=== PATIENT | female | born 1985 | race African-American/Black ===

== ENCOUNTER 2017-03-05 09:34 | Emergency (ER) | payer BC ==
[2017-03-05] MEDS ORDERED: Albuterol/Ipratropium 3.0-0.5 MG/3 ML Neb Soln NEB ONE (09:49)
[2017-03-05] MEDS ORDERED: predniSONE 20 MG Tab PO ONE (09:51)
[2017-03-05] MEDS ORDERED: Albuterol 0.083% 2.5 MG/3 ML Neb Soln NEB ONE (10:29)
--- NOTE | 2017-03-05 11:07 | EDM.PDOC ---
ED HPI GENERAL MEDICAL PROBLEM - General Chief Complaint: Respiratory Problem Stated Complaint: COUGH AND CONGESTION Time Seen by Provider: 03/05/17 09:48 Source of Information: Reports: Patient History Limitations: Reports: No Limitations - History of Present Illness INITIAL COMMENTS - FREE TEXT/NARRATIVE: History of present illness: []Patient ran out of albuterol and Symbicort has been short of breath since last night. Patient states she just moved from [place]. She denies any fevers, chills, nausea or vomiting. Review of systems: As per history of present illness and below otherwise all systems reviewed and negative. Past medical history: As per history of present illness and as reviewed below otherwise noncontributory. Surgical history: As per history of present illness and as reviewed below otherwise noncontributory. Social history: No reported history of drug or alcohol abuse. Family history: As per history of present illness and as reviewed below otherwise noncontributory. Physical exam: General: Well developed, well nourished in no respiratory distress HEENT: Atraumatic, normocephalic, pupils reactive, negative for conjunctival pallor or scleral icterus, mucous membranes moist, throat clear, neck supple, nontender, trachea midline. Lungs: Wheezing, breath sounds equal bilaterally, no accessory muscle use, chest nontender. Heart: S1S2, regular, negative for clicks, rubs, or JVD. Abdomen: Soft, nondistended, nontender. Negative for masses or hepatosplenomegaly. Negative for costovertebral tenderness. Pelvis: Stable nontender. Genitourinary: Deferred. Rectal: Deferred. Extremities: Atraumatic, negative for cords or calf pain. Neurovascular unremarkable. Neuro: Awake, alert, oriented. Cranial nerves II through XII unremarkable. Cerebellum unremarkable. Motor and sensory unremarkable throughout. Exam nonfocal. Diagnostics: []Chest x-ray negative for pneumonia Therapeutics: []Albuterol, prednisone and DuoNeb given Impression: []Asthma exacerbation, med refill Plan: []Albuterol, prednisone, Symbicort as directed meds refilled Definitive disposition and diagnosis as appropriate pending reevaluation and review of above. - Related Data Allergies Allergy/AdvReac Type Severity Reaction Status Date / Time aspirin Allergy Anaphylactic Verified 03/05/17 09:51 Shock azithromycin [From Zithromax] Allergy Anaphylactic Verified 03/05/17 09:52 Shock montelukast [From Singulair] Allergy Anaphylactic Verified 03/05/17 09:51 Shock Penicillins Allergy Anaphylactic Verified 03/05/17 09:51 Shock Home Meds: Home Meds Albuterol Sulfate [Ventolin Hfa] 8 gm IH Q4HR PRN #1 hfa.[email or web address] 03/05/17 [Rx] Albuterol [Ventolin HFA] 2 puff INH Q6H 03/05/17 [History] Budesonide/Formoterol Fumarate [Symbicort 160-4.5 Mcg Inhaler] 1 puff IH ASDIRECTED 03/05/17 [History] Fluticasone Propionate [Flovent HFA 220 mcg] 2 puff IH ASDIRECTED PRN 03/05/17 [ History] predniSONE [Prednisone] 20 mg PO DAILY #5 tablet 03/05/17 [Rx] Past Medical History Respiratory History: Reports: Asthma 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: - Past Surgical History HEENT Surgical History: Reports: Naso-Sinus Surgery Social & Family History - Family History Family Medical History: Noncontributory - Tobacco Use Smoking Status *Q: Never Smoker - Recreational Drug Use Recreational Drug Use: Yes Recreational Drug Type: Reports: Marijuana/Hashish Recreational Drug Use Frequency: Weekly ED ROS GENERAL - Review of Systems Review Of Systems: See Below (See history of present illness) ED EXAM, GENERAL - Physical Exam Exam: See Below (See history of present illness) Course - Vital Signs Last Recorded V/S: Last Vital Signs Temp 36.6 C 03/05/17 09:55 Pulse 105 H 03/05/17 09:55 Resp 24 H 03/05/17 09:55 BP 125/80 03/05/17 09:55 Pulse Ox 93 L 03/05/17 09:55 - Orders/Labs/Meds Orders: Active Orders 24 hr Category Date Time Status RT Aerosol Therapy [RC] ASDIRECTED Care 03/05/17 09:49 Active RT Aerosol Therapy [RC] ASDIRECTED Care 03/05/17 10:31 Active Chest 2V [CR] Stat Exams 03/05/17 10:13 Taken Meds: Medications Discontinued Medications Generic Name Dose Route Start Last Admin Trade Name Freq PRN Reason Stop Dose Admin Albuterol 2.5 mg 03/05/17 10:29 03/05/17 10:35 Proventil Neb Soln [facility] 03/05/17 10:30 2.5 mg ONETIME ONE Administration Albuterol/Ipratropium 3 ml 03/05/17 09:49 03/05/17 09:55 Duoneb 3.0-0.5 Mg/3 Ml [facility] 03/05/17 09:50 3 ml ONETIME ONE Administration Prednisone 60 mg 03/05/17 09:51 03/05/17 10:11 Prednisone PO 03/05/17 09:52 60 mg ONETIME ONE Administration Departure - Departure Time of Disposition: 11:08 Disposition: Home, Self-Care 01 Condition: Good Clinical Impression: Asthma exacerbation - Discharge Information Prescriptions: Albuterol Sulfate [Ventolin Hfa] 8 gm IH Q4HR PRN #1 hfa.[email or web address] PRN Reason: Wheezing predniSONE [Prednisone] 20 mg PO DAILY #5 tablet Referrals: PCP,None [Primary Care Provider] - Forms: ED Department Discharge Additional Instructions: The following information is given to patients seen in the emergency department who are being discharged to home. This information is to outline your options for follow-up care. We provide all patients seen in our emergency department with a follow-up referral. The need for follow-up, as well as the timing and circumstances, are variable depending upon the specifics of your emergency department visit. If you don't have a primary care physician on staff, we will provide you with a referral. We always advise you to contact your personal physician following an emergency department visit to inform them of the circumstance of the visit and for follow-up with them and/or the need for any referrals to a consulting specialist. The emergency department will also refer you to a specialist when appropriate. This referral assures that you have the opportunity for follow-up care with a specialist. All of these measure are taken in an effort to provide you with optimal care, which includes your follow-up. Under all circumstances we always encourage you to contact your private physician who remains a resource for coordinating your care. When calling for follow-up care, please make the office aware that this follow-up is from your recent emergency room visit. If for any reason you are refused follow-up, please contact the [facility] Emergency Department at and asked to speak to the emergency department charge nurse. Use albuterol prednisone and Symbicort as directed follow-up with primary care physician return if symptoms worsen [facility] [address] [place] [id number] - My Orders Last 24 Hours: My Active Orders 03/05/17 09:49 RT Aerosol Therapy [RC] ASDIRECTED 03/05/17 10:13 Chest 2V [CR] Stat 03/05/17 10:31 RT Aerosol Therapy [RC] ASDIRECTED - Assessment/Plan Last 24 Hours: My Active Orders 03/05/17 09:49 RT Aerosol Therapy [RC] ASDIRECTED 03/05/17 10:13 Chest 2V [CR] Stat 03/05/17 10:31 RT Aerosol Therapy [RC] ASDIRECTED
[2017-03-05 11:16] VITALS: BP 131/79
--- NOTE | 2017-03-06 14:37 | CR ---
EXAM DATE: 03/05/17 PATIENT'S AGE: 31 Patient: STEVIE THOMAS Facility: [place], [place] Site . Site : 1985 Study: XRay Chest [id number]/23/2017 10:30:18 AM Ordering Physician: Tacos Pereyra Final Report: HISTORY: Cough and congestion. Findings: Two views of the chest or provided. The lungs are normally expanded and clear. No pleural effusion or pneumothorax is seen. Cardiac silhouette size is within normal limits. Impression: Clear lungs. Dictated by Rodger Wilcox MD @ Mar 05 2017 10:45AM (Electronic Signature) Report Signed by Proxy. GRACIE SQUARE HOSPITALJabari
== END 2017-03-05 11:27 | disposition home or self-care (01) ==
LOC: MW.ED 09:34
DX: J45.901 Unspecified asthma with (acute) exacerbation (principal); Z88.1 Allergy status to other antibiotic agents; Z88.6 Allergy status to analgesic agent
CPT/HCPCS: 71020; 94640; 94664; 99285; A9270; 99284

== ENCOUNTER 2017-03-27 18:58 | Emergency (ER) | payer BC ==
[2017-03-27] MEDS ORDERED: Sodium Chloride 0.9% 10 ML Syringe FLUSH PRN (19:00)
[2017-03-27] MEDS ORDERED: Albuterol/Ipratropium 3.0-0.5 MG/3 ML Neb Soln NEB ONE ×2 (19:00→19:34)
[2017-03-27] MEDS ORDERED: Sodium Chloride 0.9% 2.5 ML Syringe FLUSH PRN (19:00)
[2017-03-27] MEDS: methylPREDNISolone Sodium Succinate 125 MG/2 ML SDV IVPUSH ONE ×2 (19:09→21:10)
[2017-03-27] MEDS ORDERED: methylPREDNISolone Sodium Succinate 125 MG/2 ML SDV IM ONE (19:22)
--- NOTE | 2017-03-27 19:26 | EDM.PDOC ---
ED HPI GENERAL MEDICAL PROBLEM - General Chief Complaint: Allergic Reaction Stated Complaint: ALLERGIC REACTION Time Seen by Provider: 03/27/17 19:21 - History of Present Illness INITIAL COMMENTS - FREE TEXT/NARRATIVE: HISTORY AND PHYSICAL: History of present illness: Patient 31-year-old black female past medical history significant for asthma presents with a concern of possible allergic reaction she states she took Motrin for some sinus pain recent congestion she's had and she developed tightness in her throat and then Wheezing she notified paramedics on their arrival they did appreciate an very wheezing patient taken Benadryl 50 mg prior to their arrival she was given epinephrine 0.5 IM and she was also currently giving herself a nebulizer upon their arrival she had significant improvement on arrival here she still is some mild wheezing she denies any throat tightness chest pain nausea vomiting fever chills or other concern patient reports allergy to aspirin states she was never informed that cross-reactivity with nonsteroidal anti-inflammatory drugs was possible Review of systems: As per history of present illness and below otherwise all systems reviewed and negative. Past medical history: As per history of present illness and as reviewed below otherwise noncontributory. Surgical history: As per history of present illness and as reviewed below otherwise noncontributory. Social history: No reported history of drug or alcohol abuse. Family history: As per history of present illness and as reviewed below otherwise noncontributory. Physical exam: HEENT: Atraumatic, normocephalic, pupils reactive, negative for conjunctival pallor or scleral icterus, mucous membranes moist, throat clear, neck supple, nontender, trachea midline. Lungs: Slightly diminished bilaterally and end-expiratory wheezing noted rare no rhonchi no crackles breath sounds equal bilaterally, chest nontender. Heart: S1S2, regular, negative for clicks, rubs, or JVD. Abdomen: Soft, nondistended, nontender. Negative for masses or hepatosplenomegaly. Negative for costovertebral tenderness. Pelvis: Stable nontender. Genitourinary: Deferred. Rectal: Deferred. Extremities: Atraumatic, negative for cords or calf pain. Neurovascular unremarkable. Neuro: Awake, alert, oriented. Cranial nerves II through XII unremarkable. Cerebellum unremarkable. Motor and sensory unremarkable throughout. Exam nonfocal. Diagnostics: Chest x-ray hCG Therapeutics: Albuterol ipratropium nebulizer Solu-Medrol 125 mg IM Impression: #1 acute allergic reaction with bronchospasm #2 history of asthma Definitive disposition and diagnosis as appropriate pending reevaluation and review of above. 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: Other (see below) Other 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: medications IM epi, po benadryl, albuterol neb - Related Data Allergies Allergy/AdvReac Type Severity Reaction Status Date / Time aspirin Allergy Anaphylactic Verified 03/27/17 19:04 Shock azithromycin [From Zithromax] Allergy Anaphylactic Verified 03/27/17 19:04 Shock montelukast [From Singulair] Allergy Anaphylactic Verified 03/27/17 19:04 Shock Penicillins Allergy Anaphylactic Verified 03/27/17 19:04 Shock Home Meds: Home Meds Albuterol Sulfate [Ventolin Hfa] 8 gm IH Q4HR PRN #1 [email or web address] 03/05/17 [Rx] Albuterol [Ventolin HFA] 2 puff INH Q6H 03/05/17 [History] Budesonide/Formoterol Fumarate [Symbicort 160-4.5 Mcg Inhaler] 1 puff IH ASDIRECTED 03/05/17 [History] Fluticasone Propionate [Flovent HFA 220 mcg] 2 puff IH ASDIRECTED PRN 03/05/17 [ History] Past Medical History Respiratory History: Reports: Asthma 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 ED EXAM GENERAL NO PERIP PULSE - Physical Exam Exam: See Below (See dictation) Course - Vital Signs Last Recorded V/S: Last Vital Signs Temp 36.6 C 03/27/17 18:59 Pulse 117 H 03/27/17 18:59 Resp 24 H 03/27/17 18:59 BP 128/77 03/27/17 18:59 Pulse Ox 92 L 03/27/17 18:59 - Orders/Labs/Meds Orders: Active Orders 24 hr Category Date Time Status RT Aerosol Therapy [RC] ASDIRECTED Care 03/27/17 19:00 Active Chest 1V Frontal [CR] Stat Exams 03/27/17 19:00 Ordered Sodium Chloride 0.9% [Saline Flush] Med 03/27/17 19:00 Active 10 ml FLUSH ASDIRECTED PRN Sodium Chloride 0.9% [Saline Flush] Med 03/27/17 19:00 Active 2.5 ml FLUSH ASDIRECTED PRN Saline Lock Insert [OM.PC] Stat Oth 03/27/17 19:00 Ordered Medication Orders Sodium Chloride (Saline Flush) 10 ml FLUSH ASDIRECTED PRN PRN Reason: Keep Vein Open Sodium Chloride (Saline Flush) 2.5 ml FLUSH ASDIRECTED PRN PRN Reason: Keep Vein Open Labs: Laboratory Tests 03/27/17 Range/Units 19:06 Urine HCG, Qual NEGATIVE (NEGATIVE) Meds: Medications Generic Name Dose Route Start Last Admin Trade Name Freq PRN Reason Stop Dose Admin Sodium Chloride 10 ml 03/27/17 19:00 Saline Flush FLUSH ASDIRECTED PRN Keep Vein Open Sodium Chloride 2.5 ml 03/27/17 19:00 Saline Flush FLUSH ASDIRECTED PRN Keep Vein Open Discontinued Medications Generic Name Dose Route Start Last Admin Trade Name Freq PRN Reason Stop Dose Admin Albuterol/Ipratropium 3 ml 03/27/17 19:00 03/27/17 19:05 Duoneb 3.0-0.5 Mg/3 Ml NEB 03/27/17 19:01 3 ml ONETIME ONE Administration Methylprednisolone Sodium Succinate 125 mg 03/27/17 18:59 03/27/17 19:09 Solu-Medrol IVPUSH 03/27/17 19:00 125 mg ONETIME ONE Administration Departure - Departure Time of Disposition: 19:25 Disposition: Home, Self-Care 01 Condition: Good Clinical Impression: Allergic reaction, History of asthma - Discharge Information Additional Instructions: The following information is given to patients seen in the emergency department who are being discharged to home. This information is to outline your options for follow-up care. We provide all patients seen in our emergency department with a follow-up referral. The need for follow-up, as well as the timing and circumstances, are variable depending upon the specifics of your emergency department visit. If you don't have a primary care physician on staff, we will provide you with a referral. We always advise you to contact your personal physician following an emergency department visit to inform them of the circumstance of the visit and for follow-up with them and/or the need for any referrals to a consulting specialist. The emergency department will also refer you to a specialist when appropriate. This referral assures that you have the opportunity for followup care with a specialist. All of these measure are taken in an effort to provide you with optimal care, which includes your followup. Under all circumstances we always encourage you to contact your private physician who remains a resource for coordinating your care. When calling for followup care, please make the office aware that this follow-up is from your recent emergency room visit. If for any reason you are refused follow-up, please contact the [facility] emergency department at and asked to speak to the emergency department charge nurse. [facility] [address] [place] [id number] Follow-up primary medical doctor and/or clinic above is discussed Medrol as prescribed EpiPen as directed continue nebulizer treatments at home avoid aspirin and any anti-inflammatory medications as discussed return as needed as discussed - My Orders Last 24 Hours: My Active Orders 03/27/17 19:00 RT Aerosol Therapy [RC] ASDIRECTED Chest 1V Frontal [CR] Stat Sodium Chloride 0.9% [Saline Flush] 10 ml FLUSH ASDIRECTED PRN Sodium Chloride 0.9% [Saline Flush] 2.5 ml FLUSH ASDIRECTED PRN Saline Lock Insert [OM.PC] Stat - Assessment/Plan Last 24 Hours: My Active Orders 03/27/17 19:00 RT Aerosol Therapy [RC] ASDIRECTED Chest 1V Frontal [CR] Stat Sodium Chloride 0.9% [Saline Flush] 10 ml FLUSH ASDIRECTED PRN Sodium Chloride 0.9% [Saline Flush] 2.5 ml FLUSH ASDIRECTED PRN Saline Lock Insert [OM.PC] Stat
[2017-03-27 20:21] VITALS: BP 119/69
--- NOTE | 2017-03-28 10:33 | CR ---
EXAM DATE: 03/27/17 PATIENT'S AGE: 31 Patient: STEVIE VALLES Facility: [place], [place] Site . Site : 1985 Study: XRay Chest [id number] 7:37:47 PM Ordering Physician: Doctor Bird Final Report: INDICATION: Allergic reaction with shortness of breath and chest pain TECHNIQUE: Chest one view COMPARISON: March 05, 2017 FINDINGS: Cardiovascular and mediastinum: Heart size and vasculature are normal in caliber and appearance. Mediastinum is within normal limits. Lungs and pleural spaces: Lungs are clear. No sign of infiltrate or mass. No sign of pleural effusion. No pneumothorax. Bones and soft tissues: No significant findings. IMPRESSION: No sign of acute disease. Dictated by Samira Schmitt MD @ Mar 27 2017 8:05PM (Electronic Signature) Report Signed by Proxy. CARMEN
== END 2017-03-27 20:18 | disposition home or self-care (01) ==
LOC: MW.ED 18:58
DX: J98.01 Acute bronchospasm (principal); T39.315A Adverse effect of propionic acid derivatives, initial encounter; Z88.6 Allergy status to analgesic agent; Z88.1 Allergy status to other antibiotic agents; Z88.0 Allergy status to penicillin
CPT/HCPCS: 71010; 81025; 94640; 94664; 96372; 99285; J2930; 99284

== ENCOUNTER 2017-04-21 21:07 | Emergency (ER) | payer BC ==
[2017-04-21] MEDS ORDERED: Ketorolac 60 MG/2 ML SDV IM ONE (21:58)
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
[2017-04-21 22:53] VITALS: BP 130/80
[2017-04-22] MEDS ORDERED: EPINEPHrine 1 MG/ML SDV ONE (00:10)
[2017-04-22] MEDS ORDERED: Albuterol/Ipratropium 3.0-0.5 MG/3 ML Neb Soln ONE (00:10)
[2017-04-22] MEDS ORDERED: Albuterol 0.083% 2.5 MG/3 ML Neb Soln ONE (00:29)
[2017-04-22] MEDS ORDERED: Famotidine 20 MG/2 ML SDV ONE (01:14)
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
== END 2017-04-21 22:45 | disposition home or self-care (01) ==
LOC: MW.ED 21:07
DX: S02.40CA Maxillary fracture, right side, initial encounter for closed fracture (principal); S16.1XXA Strain of muscle, fascia and tendon at neck level, initial encounter; S00.83XA Contusion of other part of head, initial encounter; Z88.6 Allergy status to analgesic agent; Z88.0 Allergy status to penicillin; Z88.8 Allergy status to other drugs, medicaments and biological substances; Y04.2XXA Assault by strike against or bumped into by another person, initial encounter
CPT/HCPCS: 70450; 70486; 72125; 81025; 96372; 99284; J1885; 99283

== ENCOUNTER 2017-04-22 00:04 | Emergency (ER) | payer BC ==
[2017-04-22] MEDS ORDERED: EPINEPHrine 1 MG/1 ML Amp IM ONE (00:13)
[2017-04-22] MEDS ORDERED: Magnesium Sulfate/Water 50 ML ONE (00:27)
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
[2017-04-22] MEDS ORDERED: Midazolam 5 MG/ML SDV ONE (00:52)
[2017-04-22] MEDS ORDERED: Rocuronium 50 MG/5 ML Vial IVPUSH STA (01:05)
[2017-04-22 01:20] LABS: CHLORIDE,CL 109 mmol/L (98-110); SODIUM,NA 142 mmol/L (136-146)
[2017-04-22] MEDS ORDERED: Albuterol 0.083% 2.5 MG/3 ML Neb Soln NEB ONE ×2 (01:38→01:39)
[2017-04-22] MEDS ORDERED: diphenhydrAMINE 50 MG/ML SDV IVPUSH ONE (02:06)
[2017-04-22] MEDS ORDERED: EPINEPHrine 1 MG/ML SDV SUBCUT ONE (02:06)
[2017-04-22] MEDS ORDERED: Midazolam 5 MG/ML SDV IVPUSH ONE (02:08)
[2017-04-22] MEDS ORDERED: Rocuronium 50 MG/5 ML Vial IVPUSH ONE ×2 (02:18→02:21)
[2017-04-22] MEDS ORDERED: Succinylcholine 200 MG/10 ML MDV IV STA (02:24)
[2017-04-22] MEDS ORDERED: methylPREDNISolone Sodium Succinate 125 MG/2 ML SDV IVPUSH ONE (03:35)
[2017-04-22] MEDS ORDERED: Sodium Chloride 0.9% 1,000 ML IV ONE ×2 (03:36→03:37)
[2017-04-22] MEDS ORDERED: Famotidine 20 MG/2 ML SDV IVPUSH ONE (03:38)
[2017-04-22] MEDS ORDERED: Etomidate 2 MG/ML 20 ML SDV IVPUSH ONE (03:40)
[2017-04-22] MEDS ORDERED: Magnesium Sulfate/Water 2 GM in Premix Bag 1 BAG IV ONE (03:46)
[2017-04-22 08:45] VITALS: BP 141/80
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
== END 2017-04-22 01:20 | disposition other institution (70) ==
LOC: MW.ED 00:04
DX: T78.2XXA Anaphylactic shock, unspecified, initial encounter (principal); J96.00 Acute respiratory failure, unspecified whether with hypoxia or hypercapnia; J45.909 Unspecified asthma, uncomplicated; Z88.6 Allergy status to analgesic agent; Z88.0 Allergy status to penicillin; Z88.8 Allergy status to other drugs, medicaments and biological substances
CPT/HCPCS: 36600; 43753; 71010; 80053; 82803; 84484; 85025; 93005; 94640; 94664; 96361; 96365; 96368; 96372; 96374; 96375; 99291; 99292; G0480; J0171; J0330; J1200; J2250; J2930; J3475; J7040; 99283; J2704

== ENCOUNTER 2017-07-07 11:07 | Emergency (ER) | payer BC ==
[2017-07-07] MEDS ORDERED: Albuterol/Ipratropium 3.0-0.5 MG/3 ML Neb Soln NEB ONE (11:22)
[2017-07-07] MEDS ORDERED: methylPREDNISolone Sodium Succinate 1,000 MG/8 ML SDV IV ONE (11:24)
[2017-07-07] MEDS ORDERED: methylPREDNISolone Sodium Succinate 125 MG/2 ML SDV IVPUSH ONE (12:24)
[2017-07-07 13:01] LABS: CHLORIDE,CL 108 mmol/L (98-110); SODIUM,NA 137 mmol/L (136-146)
--- NOTE | 2017-07-07 13:02 | CR ---
EXAMINATION: Two-view chest (PA and Lateral views). HISTORY: Shortness of breath. FINDINGS: The trachea is midline. The cardiomediastinal silhouette is within normal limits. No pulmonary infilt rates, effusions or pneumothorax. Osseous structures appear unremarkable. IMPRESSION: No acute cardiopulmonary process.
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
[2017-07-07 13:48] VITALS: BP 116/80
== END 2017-07-07 13:48 | disposition home or self-care (01) ==
LOC: MW.ED 11:07
DX: J45.901 Unspecified asthma with (acute) exacerbation (principal); Z88.0 Allergy status to penicillin; Z88.1 Allergy status to other antibiotic agents; Z88.6 Allergy status to analgesic agent; Z88.8 Allergy status to other drugs, medicaments and biological substances
CPT/HCPCS: 36415; 71020; 80053; 81001; 84702; 85025; 87086; 94640; 96374; 99285; J2930; 87088; 87186; 99283

== ENCOUNTER 2017-07-22 12:48 | Emergency (ER) | payer BC ==
--- NOTE | 2017-07-22 15:02 | EDM.PDOC ---
ED HPI GENERAL MEDICAL PROBLEM - General Chief Complaint: Abdominal Pain Stated Complaint: PELVIC PAIN Time Seen by Provider: 07/22/17 12:55 Source of Information: Reports: Patient History Limitations: Reports: No Limitations - History of Present Illness INITIAL COMMENTS - FREE TEXT/NARRATIVE: HISTORY AND PHYSICAL: History of present illness: [Patient comes to the ER for a test. LMP: 06/19/17. She took a home test, which turned positive, but not until after the specified time. She feels that her lower abdomen is stretching as she is having a sensation of stretching. She has no other complaints or concerns. Denies fever and chills, nausea, vomiting, abdominal pain. She's not had any vaginal discharge burning with urination or blood in her urine. No low back pain. The swelling to her feet or lower legs.] Review of systems: As per history of present illness and below otherwise all systems reviewed and negative. Past medical history: As per history of present illness and as reviewed below otherwise noncontributory. Surgical history: As per history of present illness and as reviewed below otherwise noncontributory. Social history: No reported history of drug or alcohol abuse. Family history: As per history of present illness and as reviewed below otherwise noncontributory. Physical exam: Gen.: Well-developed well-nourished black skinned female in no acute distress, sitting comfortably on exam table.. HEENT: Atraumatic, normocephalic. Oral mucous membranes are pink and moist. Lungs: No wheezing crackles or rales appreciated. Breathing without difficulty. Heart: Blood pressure is mildly elevated. Pulse regular Abdomen: Rotund. Soft, nondistended, nontender. Pelvis: Stable nontender. Genitourinary: Deferred. Rectal: Deferred. Extremities: Atraumatic, ambulatory. Full range of motion. Neurovascular unremarkable. Neuro: Awake, alert, oriented. Motor and sensory unremarkable throughout. Exam nonfocal. Diagnostics: [UA, urine , quantitative ] Impression: [, first trimester round ligament pain] Plan: [Notified patient that her urine test is positive and beta Quant is 5850. She is referred to a local OB for care during her . Tylenol as needed for ligament pain. She is in agreement with today's plan. All questions are answered and concerns are addressed.] Definitive disposition and diagnosis as appropriate pending reevaluation and review of above. Bilateral Lower Abdominal Pain Score (Numeric/FACES): 5 - Related Data Allergies Allergy/AdvReac Type Severity Reaction Status Date / Time aspirin Allergy Anaphylactic Verified 07/07/17 11:20 Shock azithromycin [From Zithromax] Allergy Anaphylactic Verified 07/07/17 11:20 Shock ibuprofen [From Motrin] Allergy Anaphylactic Verified 07/07/17 11:20 Shock ketorolac [From Toradol] Allergy Anaphylactic Verified 07/07/17 11:26 Shock montelukast [From Singulair] Allergy Anaphylactic Verified 07/07/17 11:20 Shock Penicillins Allergy Anaphylactic Verified 07/07/17 11:20 Shock Home Meds: Home Meds Albuterol [Ventolin HFA] 1 gm INH Q4H #1 inhaler 07/07/17 [Rx] Budesonide/Formoterol Fumarate [Symbicort 160-4.5 Mcg Inhaler] 2 puff IH BID #1 canister 07/07/17 [Rx] Loratadine [Claritin] 1 cap PO DAILY 07/22/17 [History] Past Medical History Cardiovascular History: Reports: None Respiratory History: Reports: Asthma Gastrointestinal History: Reports: None Genitourinary History: Reports: None CLIENT ACCOUNT REPRESENTATIVE History: Reports: Musculoskeletal History: Reports: None Neurological History: Reports: None Psychiatric History: Reports: None Endocrine/Metabolic History: Reports: None Hematologic History: Reports: None Dermatologic History: Reports: None - Infectious Disease History Infectious Disease History: Reports: None - Past Surgical History HEENT Surgical History: Reports: Naso-Sinus Surgery Social & Family History - Family History Family Medical History: Noncontributory - Tobacco Use Smoking Status *Q: Never Smoker Second Hand Smoke Exposure: No - Caffeine Use Caffeine Use: Reports: Coffee - Recreational Drug Use Recreational Drug Use: Yes Drug Use in Last 12 Months: Yes Recreational Drug Type: Reports: Marijuana/Hashish Other Recreational Drug Type: occasional use Recreational Drug Use Frequency: Monthly ED ROS GENERAL - Review of Systems Review Of Systems: ROS reveals no pertinent complaints other than HPI. ED EXAM, GI/ABD - Physical Exam Exam: See Below Course - Vital Signs Last Recorded V/S: Last Vital Signs Temp 98.9 F 07/22/17 12:56 Pulse 97 07/22/17 15:16 Resp 18 07/22/17 15:16 BP 146/55 H 07/22/17 15:16 Pulse Ox 95 07/22/17 15:16 - Orders/Labs/Meds Labs: Laboratory Tests 07/22/17 07/22/17 07/22/17 Range/Units 13:25 13:25 14:23 HCG, Quant 5850.2 mIU/mL Urine Color YELLOW Urine Appearance CLEAR Urine pH 6.0 (5.0-8.0) Ur Specific [place] 1.025 (1.001-1.035) Urine Protein NEGATIVE (NEGATIVE) mg/dL Urine Glucose (UA) NEGATIVE (NEGATIVE) mg/dL Urine Ketones NEGATIVE (NEGATIVE) mg/dL Urine Occult Blood NEGATIVE (NEGATIVE) Urine Nitrite NEGATIVE (NEGATIVE) Urine Bilirubin NEGATIVE (NEGATIVE) Urine Urobilinogen 0.2 (<2.0) EU/dL Ur Leukocyte Esterase NEGATIVE (NEGATIVE) Urine RBC 2-4 (0-2/HPF) Urine WBC 0-3 (0-5/HPF) Ur Epithelial Cells FEW (NONE-FEW) Urine Bacteria FEW (NEGATIVE) Urine HCG, Qual POSITIVE (NEGATIVE) Departure - Departure Time of Disposition: 15:00 Disposition: Home, Self-Care 01 Condition: Good Clinical Impression: , Abdominal pain during - Discharge Information Instructions: First Trimester of Referrals: PCP,None [Primary Care Provider] - Forms: ED Department Discharge Additional Instructions: The following information is given to patients seen in the emergency department who are being discharged to home. This information is to outline your options for follow-up care. We provide all patients seen in our emergency department with a follow-up referral. The need for follow-up, as well as the timing and circumstances, are variable depending upon the specifics of your emergency department visit. If you don't have a primary care physician on staff, we will provide you with a referral. We always advise you to contact your personal physician following an emergency department visit to inform them of the circumstance of the visit and for follow-up with them and/or the need for any referrals to a consulting specialist. The emergency department will also refer you to a specialist when appropriate. This referral assures that you have the opportunity for follow-up care with a specialist. All of these measure are taken in an effort to provide you with optimal care, which includes your follow-up. Under all circumstances we always encourage you to contact your private physician who remains a resource for coordinating your care. When calling for follow-up care, please make the office aware that this follow-up is from your recent emergency room visit. If for any reason you are refused follow-up, please contact the [facility] emergency department at and asked to speak to the emergency department charge nurse. [facility] Primary care - Women's Health [address] [place] [id number] Establish care with an OB at the clinic listed above. You may take Tylenol according to dosing instructions as needed for round ligament pain.
[2017-07-22 15:17] VITALS: BP 146/55
== END 2017-07-22 15:14 | disposition home or self-care (01) ==
LOC: MW.ED 12:48
DX: O99.89 Other specified diseases and conditions complicating pregnancy, childbirth and the puerperium (principal); R10.2 Pelvic and perineal pain; R10.9 Unspecified abdominal pain; Z88.6 Allergy status to analgesic agent; Z88.1 Allergy status to other antibiotic agents; Z88.0 Allergy status to penicillin; Z88.8 Allergy status to other drugs, medicaments and biological substances
CPT/HCPCS: 36415; 81001; 81025; 84702; 99283; 99284

== ENCOUNTER 2017-09-14 11:04 | Emergency (ER) | payer BC, MEDICAID ==
--- NOTE | 2017-09-14 13:11 | EDM.PDOC ---
ED HPI GENERAL MEDICAL PROBLEM - General Chief Complaint: SHOULDER SAWYER Problem Stated Complaint: BLEEDING Time Seen by Provider: 09/14/17 13:00 - History of Present Illness INITIAL COMMENTS - FREE TEXT/NARRATIVE: HISTORY AND PHYSICAL: History of present illness: The patient is a 31-year-old female who is a 7 para 3033 who is a partially 13 weeks and follows with our nurse train brakeman Joyce Robles and has been seen in our office already and had an in office ultrasound documenting an IUP; the patient is here today for some vaginal spotting that happened this morning when she went to the bathroom and wiped with the toilet paper. Patient's last sexual intercourse was several days ago and she has had some bilateral lower abdominal and pelvic tightness but no discrete localizing pain. One of her pregnancies in the past with a left-sided ectopic but she said that she had the in office ultrasound was Joyce documenting an IUP. Patient has not had any vomiting diarrhea or upper respiratory symptoms but does have allergies currently and feels congested. She is not here for the congestion. She 's been eating and drinking normally and has no flank pain. Patient is only abdominal surgical history is of C-sections. The patient denies any hematuria frequency or urgency and has not had to use a pad due to the vaginal spotting. She said it was pink in color and not dark and there was no tissue or clots. Review of systems: As per history of present illness and below otherwise all systems reviewed and negative. Past medical history: As per history of present illness and as reviewed below otherwise noncontributory. Surgical history: As per history of present illness and as reviewed below otherwise noncontributory. Social history: No reported history of drug or alcohol abuse. Family history: As per history of present illness and as reviewed below otherwise noncontributory. Physical exam: General: Well-developed well-nourished female who is nontoxic and has needles quality to voice. Vital signs have been reviewed by me HEENT: Atraumatic, normocephalic, negative for conjunctival pallor or scleral icterus, mucous membranes moist, throat clear, neck supple, nontender, trachea midline. Lungs: Clear to auscultation, breath sounds equal bilaterally, chest nontender. Heart: S1S2, regular rate and rhythm no overt murmurs Abdomen: Soft, nondistended, nontender. NABS Negative for costovertebral tenderness. Pelvis: Stable nontender. Genitourinary: Deferred. Rectal: Deferred. Extremities: Atraumatic, negative for cords or calf pain. Neurovascular unremarkable. Neuro: Awake, alert, oriented. Cranial nerves II through XII unremarkable. Cerebellum unremarkable. Motor and sensory unremarkable throughout. Exam nonfocal. Diagnostics: CBC UA urine culture if indicated serum quantitative hCG ABO Rh typing pelvic ultrasound Therapeutics: TESTING results were discussed with the patient including the ultrasound indicating a very small subchorionic bleed in an anterior placenta. I will discuss these results with the nurse train brakeman Joyce Robles and advised on strict pelvic rest hydration and reasons to return to the ED. Impression: Vaginal spotting/threatened in second trimester /small subchorionic bleed Definitive disposition and diagnosis as appropriate pending reevaluation and review of above. Pelvic Pain Score (Numeric/FACES): 6 - Related Data Allergies Allergy/AdvReac Type Severity Reaction Status Date / Time aspirin Allergy Anaphylactic Verified 09/14/17 13:02 Shock azithromycin [From Zithromax] Allergy Anaphylactic Verified 09/14/17 13:02 Shock ibuprofen [From Motrin] Allergy Anaphylactic Verified 09/14/17 13:02 Shock ketorolac [From Toradol] Allergy Anaphylactic Verified 09/14/17 13:02 Shock montelukast [From Singulair] Allergy Anaphylactic Verified 09/14/17 13:02 Shock Penicillins Allergy Anaphylactic Verified 09/14/17 13:02 Shock Home Meds: Home Meds Albuterol [Ventolin HFA] 1 gm INH Q4H #1 inhaler 07/07/17 [Rx] Budesonide/Formoterol Fumarate [Symbicort 160-4.5 Mcg Inhaler] 2 puff IH BID #1 canister 07/07/17 [Rx] Loratadine [Claritin] 1 cap PO DAILY 07/22/17 [History] Past Medical History Cardiovascular History: Reports: None Respiratory History: Reports: Asthma Gastrointestinal History: Reports: None Genitourinary History: Reports: None SHOULDER SAWYER History: Reports: Musculoskeletal History: Reports: None Neurological History: Reports: None Psychiatric History: Reports: None Endocrine/Metabolic History: Reports: None Hematologic History: Reports: None Dermatologic History: Reports: None - Infectious Disease History Infectious Disease History: Reports: None - Past Surgical History HEENT Surgical History: Reports: Naso-Sinus Surgery Social & Family History - Family History Family Medical History: Noncontributory - Tobacco Use Smoking Status *Q: Never Smoker Second Hand Smoke Exposure: No - Caffeine Use Caffeine Use: Reports: Coffee - Recreational Drug Use Recreational Drug Use: Yes Drug Use in Last 12 Months: Yes Recreational Drug Type: Reports: Marijuana/Hashish Other Recreational Drug Type: occasional use Recreational Drug Use Frequency: Monthly ED ROS GENERAL - Review of Systems Review Of Systems: ROS reveals no pertinent complaints other than HPI. ED EXAM, GENERAL - Physical Exam Exam: See Below (See dictation) Course - Vital Signs Last Recorded V/S: Last Vital Signs Temp 36.4 C 09/14/17 13:05 Pulse 104 H 09/14/17 13:05 Resp 18 09/14/17 13:05 BP 136/71 09/14/17 13:05 Pulse Ox 97 09/14/17 13:05 - Orders/Labs/Meds Labs: Laboratory Tests 09/14/17 09/14/17 09/14/17 Range/Units 13:19 13:19 13:19 WBC 9.92 (4.0-11.0) K/uL RBC 4.65 (4.30-5.90) M/uL Hgb 13.8 (12.0-16.0) g/dL Hct 40.5 (36.0-46.0) % MCV 87.1 (80.0-98.0) fL MCH 29.7 (27.0-32.0) pg MCHC 34.1 (31.0-37.0) g/dL RDW Std Deviation 40.1 (28.0-62.0) fl RDW Coeff of Munir 13 (11.0-15.0) % Plt Count 261 (150-400) K/uL MPV 9.10 (7.40-12.00) fL Neut % (Auto) 68.4 (48.0-80.0) % Lymph % (Auto) 19.8 (16.0-40.0) % [place] % (Auto) 6.4 (0.0-15.0) % Eos % (Auto) 5.2 (0.0-7.0) % Baso % (Auto) 0.2 (0.0-1.5) % Neut # (Auto) 6.8 H (1.4-5.7) K/uL Lymph # (Auto) 2.0 (0.6-2.4) K/uL [place] # (Auto) 0.6 (0.0-0.8) K/uL Eos # (Auto) 0.5 (0.0-0.7) K/uL Baso # (Auto) 0.0 (0.0-0.1) K/uL Nucleated RBC % 0.0 /100WBC Nucleated RBCs # 0 K/uL HCG, Quant 66807.7 mIU/mL Urine Color Urine Appearance Urine pH (5.0-8.0) Ur Specific [place] (1.001-1.035) Urine Protein (NEGATIVE) mg/dL Urine Glucose (UA) (NEGATIVE) mg/dL Urine Ketones (NEGATIVE) mg/dL Urine Occult Blood (NEGATIVE) Urine Nitrite (NEGATIVE) Urine Bilirubin (NEGATIVE) Urine Urobilinogen (<2.0) EU/dL Ur Leukocyte Esterase (NEGATIVE) Urine RBC (0-2/HPF) Urine WBC (0-5/HPF) Ur Epithelial Cells (NONE-FEW) Urine Bacteria (NEGATIVE) Urine Mucus (NONE-MOD) Blood Type O POSITIVE 09/14/17 Range/Units 13:40 WBC (4.0-11.0) K/uL RBC (4.30-5.90) M/uL Hgb (12.0-16.0) g/dL Hct (36.0-46.0) % MCV (80.0-98.0) fL MCH (27.0-32.0) pg MCHC (31.0-37.0) g/dL RDW Std Deviation (28.0-62.0) fl RDW Coeff of [place] (11.0-15.0) % Plt Count (150-400) K/uL MPV (7.40-12.00) fL Neut % (Auto) (48.0-80.0) % Lymph % (Auto) (16.0-40.0) % [place] % (Auto) (0.0-15.0) % Eos % (Auto) (0.0-7.0) % Baso % (Auto) (0.0-1.5) % Neut # (Auto) (1.4-5.7) K/uL Lymph # (Auto) (0.6-2.4) K/uL [place] # (Auto) (0.0-0.8) K/uL Eos # (Auto) (0.0-0.7) K/uL Baso # (Auto) (0.0-0.1) K/uL Nucleated RBC % /100WBC Nucleated RBCs # K/uL HCG, Quant mIU/mL Urine Color YELLOW Urine Appearance SLT CLOUDY Urine pH 6.0 (5.0-8.0) Ur Specific [place] >= 1.030 (1.001-1.035) Urine Protein NEGATIVE (NEGATIVE) mg/dL Urine Glucose (UA) NEGATIVE (NEGATIVE) mg/dL Urine Ketones NEGATIVE (NEGATIVE) mg/dL Urine Occult Blood NEGATIVE (NEGATIVE) Urine Nitrite NEGATIVE (NEGATIVE) Urine Bilirubin NEGATIVE (NEGATIVE) Urine Urobilinogen 1.0 (<2.0) EU/dL Ur Leukocyte Esterase NEGATIVE (NEGATIVE) Urine RBC 0-1 (0-2/HPF) Urine WBC 0-2 (0-5/HPF) Ur Epithelial Cells MODERATE (NONE-FEW) Urine Bacteria FEW (NEGATIVE) Urine Mucus MODERATE (NONE-MOD) Blood Type Departure - Departure Time of Disposition: 14:45 Disposition: Home, Self-Care 01 Condition: Good Clinical Impression: Threatened , Subchorionic hemorrhage in second trimester - Discharge Information Referrals: PCP,None [Primary Care Provider] - Forms: ED Department Discharge Additional Instructions: The following information is given to patients seen in the emergency department who are being discharged to home. This information is to outline your options for follow-up care. We provide all patients seen in our emergency department with a follow-up referral. The need for follow-up, as well as the timing and circumstances, are variable depending upon the specifics of your emergency department visit. If you don't have a primary care physician on staff, we will provide you with a referral. We always advise you to contact your personal physician following an emergency department visit to inform them of the circumstance of the visit and for follow-up with them and/or the need for any referrals to a consulting specialist. The emergency department will also refer you to a specialist when appropriate. This referral assures that you have the opportunity for followup care with a specialist. All of these measure are taken in an effort to provide you with optimal care, which includes your followup. Under all circumstances we always encourage you to contact your private physician who remains a resource for coordinating your care. When calling for followup care, please make the office aware that this follow-up is from your recent emergency room visit. If for any reason you are refused follow-up, please contact the [facility] emergency department at and ask to speak to the emergency department charge nurse. [facility] Primary care-Women's Health [address] [address] Nothing in vagina, no sexual intercourse no tampons no douching until you're followed up by Joyce in the clinic. Please keep your appointment on Monday and push hydration and rest as much as possible. Return to ER as needed and as discussed.
--- NOTE | 2017-09-14 14:34 | US ---
First trimester sonogram Sound evaluation of the first trimester was carried out demonstrating single living intraut erine fetus mobile and active. Composite ultrasound age by measurement was 14 weeks 0 days whic h corresponds to estimated gestational age by last menstrual period of 13 weeks 1 day. Placenta is fo rming anteriorly is a very small 1.9 cm subchorionic hemorrhage likely to be of no consequence. Neither ovary was identified discretely. Impression: Single live intrauterine gestation 14 weeks 0 days by ultrasound dates which are internal ly consistent. Small subchorionic hemorrhage unlikely to be of future significance.
[2017-09-14 15:03] VITALS: BP 129/61
== END 2017-09-14 15:02 | disposition home or self-care (01) ==
LOC: MW.ED 11:04
DX: O20.0 Threatened abortion (principal); O99.512 Diseases of the respiratory system complicating pregnancy, second trimester; J45.909 Unspecified asthma, uncomplicated; Z79.899 Other long term (current) drug therapy; Z88.0 Allergy status to penicillin; Z88.1 Allergy status to other antibiotic agents; Z88.6 Allergy status to analgesic agent; Z88.8 Allergy status to other drugs, medicaments and biological substances; Z3A.14 14 weeks gestation of pregnancy
CPT/HCPCS: 36415; 76801; 76801-26; 81001; 84702; 85025; 86900; 86901; 99284; 99284-25

== ENCOUNTER 2019-05-28 19:30 | Emergency (ER) | payer MEDICAID ==
--- NOTE | 2019-05-28 22:23 | US ---
INDICATION: Vaginal bleeding TECHNIQUE: Ultrasound OB pelvis transvaginal. Real time mars scale imaging of the pelvis was performed. COMPARISON: None FINDINGS: LMP: 03/31/2019 Gestational age by LMP: 8 weeks 2 days Estimated due date by LMP: 01/05/2020 Sonographic imaging demonstrates a single living intrauterine gestation. The embryo demonstrates a regular cardiac rate measuring 72 beats per minute. The embryo`s crown rump length measurement of 19.23 millimeters corresponds to a gestational age of 8 weeks 4 days with a sonographic due date of 01/03/2020. There is a normal appearing yolk sac. There are no gross abnormalities noted within the embryo at this early state of development. The placenta has not yet developed. The gestational sac has a normal appearance. 2.0 centimeter x 1.8 centimeter large subchorionic hemorrhage. The amount of fluid within the sac appears appropriate for gestational age. The cervix is closed. The myometrium appears normal. The ovaries are of normal size. There are no suspicious fluid collections noted in the cul-de-sac. IMPRESSION: Viable intrauterine . Gestational age calculated at 8 weeks 4 days with a sonographic due date of 01/03/2020. Measurements consistent with dates. 2.0 centimeter x 1.8 centimeter probable subchorionic hemorrhage. This is adjacent to the internal cervical os. Dictated by Lonny Armstrong MD @ May 28 2019 10:22PM Signed by Dr. Lonny Armstrong @ May 28 2019 10:22PM
--- NOTE | 2019-05-28 22:55 | EDM.PDOC ---
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 The patient states that both 5 PM she took a Tylenol with Codeine for her back pain. Shortly after that she had a gush of vaginal bleeding and mild pelvic cramping. She is a 7 para 4 2 currently approximately 8 weeks . She states she is unsure of her last menstrual period as she has been spotting off and on for the last 3-4 months. He did have a positive test and an ultrasound verification in [place] before she moved here within the last couple weeks. Denies nausea, vomiting, lightheadedness, diarrhea, constipation, dysuria, other medical problems or injury. She does have a history of chronic low back pain. Lower Back Pain Score (Numeric/FACES): 7 - Related Data Allergies Allergy/AdvReac Type Severity Reaction Status Date / Time aspirin Allergy Anaphylactic Verified 05/28/19 19:53 Shock azithromycin [From Zithromax] Allergy Anaphylactic Verified 05/28/19 19:53 Shock ibuprofen [From Motrin] Allergy Anaphylactic Verified 05/28/19 19:53 Shock ketorolac [From Toradol] Allergy Anaphylactic Verified 05/28/19 19:53 Shock montelukast [From Singulair] Allergy Anaphylactic Verified 05/28/19 19:53 Shock Penicillins Allergy Anaphylactic Verified 05/28/19 19:53 Shock Home Meds: Home Meds Budesonide/Formoterol Fumarate [Symbicort 160-4.5 Mcg Inhaler] 2 puff IH BID 05/31 [History] Loratadine [Claritin] 10 mg PO DAILY PRN 07/31/18 [History] Past Medical History HEENT History: Reports: Allergic Rhinitis, Other (See Below) Other HEENT History: wears glasses, hyposmia Cardiovascular History: Reports: None Other Cardiovascular History: murmur with 2nd Respiratory History: Reports: Asthma Gastrointestinal History: Reports: Gastritis, GERD Other Gastrointestinal History: reflux relieved with baking soda and water, tums as needed Genitourinary History: Reports: None FREELANCE TRANSLATOR History: Reports: Ectopic , Other FREELANCE TRANSLATOR History: 5 months post Musculoskeletal History: Reports: None Neurological History: Reports: Other (See Below) Psychiatric History: Reports: None Endocrine/Metabolic History: Reports: Obesity/BMI 30+ Hematologic History: Reports: None Immunologic History: Reports: None Oncologic (Cancer) History: Reports: None Dermatologic History: Reports: Eczema Other Dermatologic History: left axilla hidrandenitis supurativa - Infectious Disease History Infectious Disease History: Reports: None - Past Surgical History Head Surgeries/Procedures: Reports: None HEENT Surgical History: Reports: Naso-Sinus Surgery Other HEENT Surgeries/Procedures: removal of nasal polyp, sinus surgery Cardiovascular Surgical History: Reports: None Respiratory Surgical History: Reports: None GI Surgical History: Reports: None Female Surgical History: Reports: Section, Tubal Ligation, Other ( See Below) Other Female Surgeries/Procedures: laparotomy for ectopic , previous c/section x4, ETOP x2 Endocrine Surgical History: Reports: None Neurological Surgical History: Reports: None Social & Family History - Family History Family Medical History: Noncontributory Cardiac: Reports: Cardiomyopathy, Heart Failure, Hypertension Respiratory: Reports: Asthma OBGYN: Reports: Neurological: Reports: Other (See Below) Other Neurological Family History: Epilepsy Endocrine/Metabolic: Reports: Diabetes, type II Oncologic: Reports: Breast, Colon, Lung - Tobacco Use Smoking Status *Q: Never Smoker Second Hand Smoke Exposure: No - Caffeine Use Caffeine Use: Reports: Coffee - Recreational Drug Use Recreational Drug Use: Yes Recreational Drug Type: Reports: Marijuana/Hashish Recreational Drug Use Frequency: Weekly ED ROS GENERAL - Review of Systems Review Of Systems: ROS reveals no pertinent complaints other than HPI. ED EXAM - Physical Exam Exam: See Below Exam Limited By: No Limitations General Appearance: Alert, No Apparent Distress Ears: Normal External Exam Nose: Normal Inspection Throat/Mouth: Normal Inspection Head: Atraumatic, Normocephalic Neck: Normal Inspection Respiratory/Chest: No Respiratory Distress, Lungs Clear, Normal Breath Sounds Cardiovascular: Normal Peripheral Pulses, Regular Rate, Rhythm, No Murmur GI/Abdominal Exam: Normal Bowel Sounds, Soft, Non-Tender, No Distention Rectal Exam: Normal Exam Back Exam: Normal Inspection Extremities: Normal Inspection Neurological: Alert, Oriented Psychiatric: Normal Affect, Normal Mood Skin Exam: Warm, Dry, Intact, Normal Color, No Rash Lymphatic: No Adenopathy Course - Vital Signs Last Recorded V/S: Last Vital Signs Temp 36.7 C 05/28/19 19:54 Pulse 89 05/28/19 19:54 Resp 18 05/28/19 19:54 BP 123/71 05/28/19 19:54 Pulse Ox 97 05/28/19 19:54 - Orders/Labs/Meds Labs: Laboratory Tests 05/28/19 05/28/19 05/28/19 Range/Units 19:41 20:54 20:54 WBC 9.02 (4.0-11.0) K/uL RBC 4.33 (4.30-5.90) M/uL Hgb 12.3 (12.0-16.0) g/dL Hct 37.6 (36.0-46.0) % MCV 86.8 (80.0-98.0) fL MCH 28.4 (27.0-32.0) pg MCHC 32.7 (31.0-37.0) g/dL RDW Std Deviation 44.2 (28.0-62.0) fl RDW Coeff of Munir 14 (11.0-15.0) % Plt Count 296 (150-400) K/uL MPV 9.30 (7.40-12.00) fL Neut % (Auto) 53.2 (48.0-80.0) % Lymph % (Auto) 32.5 (16.0-40.0) % [place] % (Auto) 8.1 (0.0-15.0) % Eos % (Auto) 6.0 (0.0-7.0) % Baso % (Auto) 0.2 (0.0-1.5) % Neut # (Auto) 4.8 (1.4-5.7) K/uL Lymph # (Auto) 2.9 H (0.6-2.4) K/uL [place] # (Auto) 0.7 (0.0-0.8) K/uL Eos # (Auto) 0.5 (0.0-0.7) K/uL Baso # (Auto) 0.0 (0.0-0.1) K/uL Nucleated RBC % 0.0 /100WBC Nucleated RBCs # 0 K/uL HCG, Quant 64875.0 mIU/mL Urine Color YELLOW Urine Appearance CLEAR Urine pH 6.0 (5.0-8.0) Ur Specific [place] 1.025 (1.001-1.035) Urine Protein NEGATIVE (NEGATIVE) mg/dL Urine Glucose (UA) NEGATIVE (NEGATIVE) mg/dL Urine Ketones NEGATIVE (NEGATIVE) mg/dL Urine Occult Blood MODERATE H (NEGATIVE) Urine Nitrite NEGATIVE (NEGATIVE) Urine Bilirubin NEGATIVE (NEGATIVE) Urine Urobilinogen 0.2 (<2.0) EU/dL Ur Leukocyte Esterase NEGATIVE (NEGATIVE) Urine RBC NONE SEEN (0-2/HPF) Urine WBC 0-1 (0-5/HPF) Ur Epithelial Cells OCCASIONAL (NONE-FEW) Urine Bacteria FEW (NEGATIVE) Urine Mucus LIGHT (NONE-MOD) Blood Type 05/28/19 Range/Units 20:54 WBC (4.0-11.0) K/uL RBC (4.30-5.90) M/uL Hgb (12.0-16.0) g/dL Hct (36.0-46.0) % MCV (80.0-98.0) fL MCH (27.0-32.0) pg MCHC (31.0-37.0) g/dL RDW Std Deviation (28.0-62.0) fl RDW Coeff of Munir (11.0-15.0) % Plt Count (150-400) K/uL MPV (7.40-12.00) fL Neut % (Auto) (48.0-80.0) % Lymph % (Auto) (16.0-40.0) % [place] % (Auto) (0.0-15.0) % Eos % (Auto) (0.0-7.0) % Baso % (Auto) (0.0-1.5) % Neut # (Auto) (1.4-5.7) K/uL Lymph # (Auto) (0.6-2.4) K/uL [place] # (Auto) (0.0-0.8) K/uL Eos # (Auto) (0.0-0.7) K/uL Baso # (Auto) (0.0-0.1) K/uL Nucleated RBC % /100WBC Nucleated RBCs # K/uL HCG, Quant mIU/mL Urine Color Urine Appearance Urine pH (5.0-8.0) Ur Specific [place] (1.001-1.035) Urine Protein (NEGATIVE) mg/dL Urine Glucose (UA) (NEGATIVE) mg/dL Urine Ketones (NEGATIVE) mg/dL Urine Occult Blood (NEGATIVE) Urine Nitrite (NEGATIVE) Urine Bilirubin (NEGATIVE) Urine Urobilinogen (<2.0) EU/dL Ur Leukocyte Esterase (NEGATIVE) Urine RBC (0-2/HPF) Urine WBC (0-5/HPF) Ur Epithelial Cells (NONE-FEW) Urine Bacteria (NEGATIVE) Urine Mucus (NONE-MOD) Blood Type O POSITIVE Departure - Departure Time of Disposition: 22:56 Disposition: Home, Self-Care 01 Condition: Good Clinical Impression: Vaginal bleeding during - Discharge Information Referrals: PCP,None [Primary Care Provider] - Dharmesh Thompson MD [Physician] - Additional Instructions: The following information is given to patients seen in the emergency department who are being discharged to home. This information is to outline your options for follow-up care. We provide all patients seen in our emergency department with a follow-up referral. The need for follow-up, as well as the timing and circumstances, are variable depending upon the specifics of your emergency department visit. If you don't have a primary care physician on staff, we will provide you with a referral. We always advise you to contact your personal physician following an emergency department visit to inform them of the circumstance of the visit and for follow-up with them and/or the need for any referrals to a consulting specialist. The emergency department will also refer you to a specialist when appropriate. This referral assures that you have the opportunity for follow-up care with a specialist. All of these measure are taken in an effort to provide you with optimal care, which includes your follow-up. Under all circumstances we always encourage you to contact your private physician who remains a resource for coordinating your care. When calling for follow-up care, please make the office aware that this follow-up is from your recent emergency room visit. If for any reason you are refused follow-up, please contact the [facility] Emergency Department at and asked to speak to the emergency department charge nurse. [facility] [address] [place] [id number] 1. Vaginal rest: No tampons, douching, intercourse or heavy lifting 2. Tylenol 1 g up to 3 times daily as needed for back pain 3. Make an appointment in OB for follow-up
[2019-05-28 23:25] VITALS: BP 132/94; PULSE 75
== END 2019-05-28 23:10 | disposition home or self-care (01) ==
LOC: MW.ED 19:30
DX: O20.9 Hemorrhage in early pregnancy, unspecified (principal); O99.511 Diseases of the respiratory system complicating pregnancy, first trimester; J45.909 Unspecified asthma, uncomplicated; O99.211 Obesity complicating pregnancy, first trimester; E66.9 Obesity, unspecified; Z68.35 Body mass index [BMI] 35.0-35.9, adult; Z79.51 Long term (current) use of inhaled steroids; Z79.899 Other long term (current) drug therapy; Z88.0 Allergy status to penicillin; Z88.1 Allergy status to other antibiotic agents; Z88.8 Allergy status to other drugs, medicaments and biological substances; Z3A.08 8 weeks gestation of pregnancy
CPT/HCPCS: 36415; 76801; 76801-26; 81001; 84702; 85025; 86900; 86901; 99283; 99284-25

== ENCOUNTER 2019-07-10 11:51 | Emergency (ER) | payer SELFPAY ==
--- NOTE | 2019-07-10 12:07 | EDM.PDOC ---
ED HPI GENERAL MEDICAL PROBLEM - General Chief Complaint: General Stated Complaint: MEDICAL CLERANCE Time Seen by Provider: 07/10/19 12:03 - History of Present Illness INITIAL COMMENTS - FREE TEXT/NARRATIVE: HISTORY AND PHYSICAL: History of present illness: A 33-year-old female with custody of law enforcement presents for medical clearance was no complaints. Review of systems: As per history of present illness and below otherwise all systems reviewed and negative. Past medical history: As per history of present illness and as reviewed below otherwise noncontributory. Surgical history: As per history of present illness and as reviewed below otherwise noncontributory. Social history: No reported history of drug or alcohol abuse. Family history: As per history of present illness and as reviewed below otherwise noncontributory. Physical exam: HEENT: Atraumatic, normocephalic, pupils reactive, negative for conjunctival pallor or scleral icterus, mucous membranes moist, throat clear, neck supple, nontender, trachea midline. Lungs: Clear to auscultation, breath sounds equal bilaterally, chest nontender. Heart: S1S2, regular, negative for clicks, rubs, or JVD. Abdomen: Soft, nondistended, nontender. Negative for masses or hepatosplenomegaly. Negative for costovertebral tenderness. Pelvis: Stable nontender. Genitourinary: Deferred. Rectal: Deferred. Extremities: Atraumatic, negative for cords or calf pain. Neurovascular unremarkable. Neuro: Awake, alert, oriented. Cranial nerves II through XII unremarkable. Cerebellum unremarkable. Motor and sensory unremarkable throughout. Exam nonfocal. Diagnostics: None Therapeutics: None Impression: #1 medical clearance for incarceration Definitive disposition and diagnosis as appropriate pending reevaluation and review of above. - Related Data Allergies Allergy/AdvReac Type Severity Reaction Status Date / Time aspirin Allergy Anaphylactic Verified 05/28/19 19:53 Shock azithromycin [From Zithromax] Allergy Anaphylactic Verified 05/28/19 19:53 Shock ibuprofen [From Motrin] Allergy Anaphylactic Verified 05/28/19 19:53 Shock ketorolac [From Toradol] Allergy Anaphylactic Verified 05/28/19 19:53 Shock montelukast [From Singulair] Allergy Anaphylactic Verified 05/28/19 19:53 Shock Penicillins Allergy Anaphylactic Verified 05/28/19 19:53 Shock Home Meds: Home Meds Budesonide/Formoterol Fumarate [Symbicort 160-4.5 Mcg Inhaler] 2 puff IH BID 05/31 [History] Loratadine [Claritin] 10 mg PO DAILY PRN 07/31/18 [History] Past Medical History HEENT History: Reports: Allergic Rhinitis, Other (See Below) Other HEENT History: wears glasses, hyposmia Cardiovascular History: Reports: None Other Cardiovascular History: murmur with 2nd Respiratory History: Reports: Asthma Gastrointestinal History: Reports: Gastritis, GERD Other Gastrointestinal History: reflux relieved with baking soda and water, tums as needed Genitourinary History: Reports: None 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: Ectopic , Other PUMPING SUPERVISOR History: 5 months post Musculoskeletal History: Reports: None Neurological History: Reports: Other (See Below) Psychiatric History: Reports: None Endocrine/Metabolic History: Reports: Obesity/BMI 30+ Hematologic History: Reports: None Immunologic History: Reports: None Oncologic (Cancer) History: Reports: None Dermatologic History: Reports: Eczema Other Dermatologic History: left axilla hidrandenitis supurativa - Infectious Disease History Infectious Disease History: Reports: None - Past Surgical History Head Surgeries/Procedures: Reports: None HEENT Surgical History: Reports: Naso-Sinus Surgery Other HEENT Surgeries/Procedures: removal of nasal polyp, sinus surgery Cardiovascular Surgical History: Reports: None Respiratory Surgical History: Reports: None GI Surgical History: Reports: None Female Surgical History: Reports: Section, Tubal Ligation, Other ( See Below) Other Female Surgeries/Procedures: laparotomy for ectopic , previous c/section x4, ETOP x2 Endocrine Surgical History: Reports: None Neurological Surgical History: Reports: None Social & Family History - Family History Family Medical History: Noncontributory Cardiac: Reports: Cardiomyopathy, Heart Failure, Hypertension Respiratory: Reports: Asthma OBGYN: Reports: Neurological: Reports: Other (See Below) Other Neurological Family History: Epilepsy Endocrine/Metabolic: Reports: Diabetes, type II Oncologic: Reports: Breast, Colon, Lung - Caffeine Use Caffeine Use: Reports: Coffee ED ROS GENERAL - Review of Systems Review Of Systems: Comprehensive ROS is negative, except as noted in HPI. ED EXAM, GENERAL - Physical Exam Exam: See Below (The dictation) Departure - Departure Time of Disposition: 12:05 Disposition: Home, Self-Care 01 Condition: Good Clinical Impression: Medical clearance for incarceration - Discharge Information Additional Instructions: The following information is given to patients seen in the emergency department who are being discharged to home. This information is to outline your options for follow-up care. We provide all patients seen in our emergency department with a follow-up referral. The need for follow-up, as well as the timing and circumstances, are variable depending upon the specifics of your emergency department visit. If you don't have a primary care physician on staff, we will provide you with a referral. We always advise you to contact your personal physician following an emergency department visit to inform them of the circumstance of the visit and for follow-up with them and/or the need for any referrals to a consulting specialist. The emergency department will also refer you to a specialist when appropriate. This referral assures that you have the opportunity for followup care with a specialist. All of these measure are taken in an effort to provide you with optimal care, which includes your followup. Under all circumstances we always encourage you to contact your private physician who remains a resource for coordinating your care. When calling for followup care, please make the office aware that this follow-up is from your recent emergency room visit. If for any reason you are refused follow-up, please contact the [facility] emergency department at and asked to speak to the emergency department charge nurse. Follow-up primary medical doctor return as needed as discussed
[2019-07-10 12:08] VITALS: BP 132/66; PULSE 99
== END 2019-07-10 12:16 | disposition home or self-care (01) ==
LOC: MW.ED 11:51
DX: Z02.89 Encounter for other administrative examinations (principal); J45.909 Unspecified asthma, uncomplicated; E66.9 Obesity, unspecified; Z68.33 Body mass index [BMI] 33.0-33.9, adult; Z88.6 Allergy status to analgesic agent; Z88.1 Allergy status to other antibiotic agents; Z88.0 Allergy status to penicillin; Z88.8 Allergy status to other drugs, medicaments and biological substances; Z79.51 Long term (current) use of inhaled steroids
CPT/HCPCS: 99283

== ENCOUNTER 2019-08-13 08:11 | Emergency (ER) | payer MEDICAID, OTHER, SELFPAY ==
[2019-08-13] MEDS ORDERED: Sodium Chloride 0.9% 1,000 ML IV ONE (08:42)
[2019-08-13] MEDS ORDERED: Ondansetron 4 MG/2 ML SDV IVPUSH ONE (08:42)
[2019-08-13 09:12] LABS: BLOOD UREA NITROGEN,BUN 6 mg/dL (7.0-18.0); CARBON DIOXIDE,CO2 23.9 mmol/L (21.0-32.0); CHLORIDE,CL 102 mmol/L (98-107); GLUCOSE RANDOM 84 mg/dL (74-106); LIPASE 90 U/L (73-393); POTASSIUM,K 3.6 mmol/L (3.5-5.1); SODIUM,NA 137 mmol/L (136-145)
--- NOTE | 2019-08-13 09:54 | EDM.PDOC ---
ED [facility] GENERAL MEDICAL PROBLEM - General Chief Complaint: Abdominal Pain Stated Complaint: 19 WEEKS PREG--PAIN IN STOMACH Time Seen by Provider: 08/13/19 08:24 - History of Present Illness INITIAL COMMENTS - FREE TEXT/NARRATIVE: HPI 33-year-old at an estimated 19 weeks gestation presents for evaluation of poorly characterize sharp waxing waning abdominal pain that was initially diffuse is now left sided has been present since this morning, endorses nausea without vomiting. No fevers, chills, dysuria, urinary frequency. Notes that she recently returned from [place] and was exposed to multiple family members who had N/V/D symptoms, the patient experienced similar symptoms which have been gradually resolving, the patient is also had several days of a nonproductive cough. Patient also noted significant fatigue yesterday. No vaginal discharge or bleeding. Patient has not seen a WAREHOUSE ASSEMBLY WORKER during this which she reports is due to lack of insurance. History reviewed and notable for: * 05/28/19 - TV US with viable intrauterine . Gestational age calculate 8 weeks 4 days with sonographic due date of 01/03/2020. 2.0 cm x 1.8 cm probable subchorionic hemorrhage this is adjacent to the end internal cervical os. * 07/10/19 - unremarkable ED examination with clearance for incarceration. * 10/12/18 - negative exercise stress test. M/S/F/SocHx notable for: please see HPI; remainder reviewed with patient and in chart. ROS: Negative constitutional, eye, cardiovascular, pulmonary, GI, , MSK, skin , neurologic, psychiatric, endocrine unless noted in the HPI. Exam HR 91, RR 16, BP 120 60 43, T 36.2C, SaO2 100% on room air. Gen: Pleasant, non-toxic appearing, resting comfortably. HEENT: NC, AT, PEERL, EOMI. Resp: Clear to auscultation bilaterally, normal work of breathing, no accessory muscle usage. Card: Regular rate and rhythm with no murmurs, rubs, or gallops, extremities warm and well perfused. GI: Non-tender to palpation throughout all quadrants, no focal tenderness at McBurney's point, negative Bush's sign, non-distended, no rebound or guarding. : No suprapubic tenderness to palpation. No CVA tenderness percussion bilaterally. MSK: No visible deformities, strength and tone without visually appreciable deficit. Skin: Normal color with no visible lesions. Neuro: alert and oriented 3, no facial asymmetry, vision and hearing WNL. Psych: Mood and affect appropriate. Focused Ultrasound Indication: evaluation with abdominal pain. Exam type (limited): Transabdominal, initial Views obtained: Transabdominal sagittal and transabdominal transverse. Findings: intrauterine with FHR of ~152. No free fluid. Focused Renal Ultrasound Indication: Abdominal pain. Exam type (limited): Initial Views obtained: Right renal coronal and short axis. Left renal coronal and short axis. Bladder. Findings/Interpretation: No sonographic evidence of renal tract obstruction. Labs / Imaging: WBC 9.36, HB 13.4, sodium 137, potassium 3.6, AST 14, ALT 19, alkaline phosphatase 85, total bilirubin 0.3, lipase 90. UA - negative nitrate, negative leukocyte esterase. MDM Previous chart, nursing note, labs, imaging, and vitals reviewed. A: 33-year-old at an estimated 19 weeks gestation presents for evaluation of poorly characterize sharp waxing waning abdominal pain that was initially diffuse is now left sided has been present since this morning, endorses nausea without vomiting. DDx & Evaluation: intrabdominal - abdominal exam benign, patient taking p.o. well, patient with cramping type pain, mild nausea, and normal labs, as such strongly doubt an acute medical or surgical intrabdominal process that will require hospitalization or specific medications for resolution. Imaging is not felt to be warranted (risk versus benefit with respect to fetus) at the present time. No clear evidence of acute appendicitis, biliary disease, SBO, partial SBO, ileus, diverticulitis. Strongly suspect cramping type discomfort secondary the patients recent/resolving nausea and vomiting. Return to care precautions provided. Genitourinary - UA without his infection, POCUS without discernible abnormalities, no flank pain. POCUS with normal activity. No concerning features on history regarding vaginal bleeding or discharge. Strongly doubt an acute, clinically significant, genitourinary etiology. ED Course: 1 L NS and 4 mg Zofran given. 09:46 - repeat evaluation, patient resting comfortably, abdominal exam remains benign. Patient able to take PO well. Disposition: discharged with RX for Zofran, WAREHOU[employer]SEM[employer]Y WORKER follow-up arrange, return to care precautions provided. Impression: abdominal pain, nausea. Abdominal Pain Score (Numeric/FACES): 7 - Related Data Allergies Allergy/AdvReac Type Severity Reaction Status Date / Time aspirin Allergy Anaphylactic Verified 08/13/19 08:18 Shock azithromycin [From Zithromax] Allergy Anaphylactic Verified 08/13/19 08:18 Shock ibuprofen [From Motrin] Allergy Anaphylactic Verified 08/13/19 08:18 Shock ketorolac [From Toradol] Allergy Anaphylactic Verified 08/13/19 08:18 Shock montelukast [From Singulair] Allergy Anaphylactic Verified 08/13/19 08:18 Shock Penicillins Allergy Anaphylactic Verified 08/13/19 08:18 Shock Home Meds: Home Meds Budesonide/Formoterol Fumarate [Symbicort 160-4.5 Mcg Inhaler] 2 puff IH BID 05/31 [History] Loratadine [Claritin] 10 mg PO DAILY PRN 07/31/18 [History] Ondansetron [Zofran ODT] 4 mg PO Q6H PRN #10 tab.dis 08/13/19 [Rx] Past Medical History HEENT History: Reports: Allergic Rhinitis, Other (See Below) Other HEENT History: wears glasses, hyposmia Cardiovascular History: Reports: None Other Cardiovascular History: murmur with 2nd Respiratory History: Reports: Asthma Gastrointestinal History: Reports: Gastritis, GERD Other Gastrointestinal History: reflux relieved with baking soda and water, tums as needed Genitourinary History: Reports: None WAREHOUSE ASSEM[employer]Y WORKER History: Reports: Ectopic , Other WAREHOUSE ASSEMBLY WORKER History: 5 months post Musculoskeletal History: Reports: None Neurological History: Reports: Other (See Below) Psychiatric History: Reports: None Endocrine/Metabolic History: Reports: Obesity/BMI 30+ Hematologic History: Reports: None Immunologic History: Reports: None Oncologic (Cancer) History: Reports: None Dermatologic History: Reports: Eczema Other Dermatologic History: left axilla hidrandenitis supurativa - Infectious Disease History Infectious Disease History: Reports: Chicken Pox - Past Surgical History Head Surgeries/Procedures: Reports: None HEENT Surgical History: Reports: Naso-Sinus Surgery Other HEENT Surgeries/Procedures: removal of nasal polyp, sinus surgery Cardiovascular Surgical History: Reports: None Respiratory Surgical History: Reports: None GI Surgical History: Reports: None Female Surgical History: Reports: Section, Tubal Ligation, Other ( See Below) Other Female Surgeries/Procedures: laparotomy for ectopic , previous c/section x4, ETOP x2 Endocrine Surgical History: Reports: None Neurological Surgical History: Reports: None Social & Family History - Family History Family Medical History: Noncontributory Cardiac: Reports: Cardiomyopathy, Heart Failure, Hypertension Respiratory: Reports: Asthma OBGYN: Reports: Neurological: Reports: Other (See Below) Other Neurological Family History: Epilepsy Endocrine/Metabolic: Reports: Diabetes, type II Oncologic: Reports: Breast, Colon, Lung - Tobacco Use Smoking Status *Q: Never Smoker Second Hand Smoke Exposure: No - Caffeine Use Caffeine Use: Reports: None - Recreational Drug Use Recreational Drug Use: No ED ROS GENERAL - Review of Systems Review Of Systems: See Below ED EXAM, GENERAL - Physical Exam Exam: See Below Course - Vital Signs Last Recorded V/S: Last Vital Signs Temp 36.2 C 08/13/19 08:19 Pulse 91 08/13/19 08:19 Resp 16 08/13/19 08:19 BP 126/43 L 08/13/19 08:19 Pulse Ox 100 08/13/19 08:19 - Orders/Labs/Meds Orders: Active Orders 24 hr Category Date Time Status INFLUENZA A+B AG SCREEN [RM] Stat Lab 08/13/19 08:32 Ordered Labs: Laboratory Tests 08/13/19 08/13/19 08/13/19 Range/Units 08:24 08:28 08:28 WBC 9.36 (4.0-11.0) K/uL RBC 4.59 (4.30-5.90) M/uL Hgb 13.4 (12.0-16.0) g/dL Hct 39.9 (36.0-46.0) % MCV 86.9 (80.0-98.0) fL MCH 29.2 (27.0-32.0) pg MCHC 33.6 (31.0-37.0) g/dL RDW Std Deviation 44.6 (28.0-62.0) fl RDW Coeff of Munir 14 (11.0-15.0) % Plt Count 302 (150-400) K/uL MPV 9.50 (7.40-12.00) fL Neut % (Auto) 66.2 (48.0-80.0) % Lymph % (Auto) 24.4 (16.0-40.0) % [place] % (Auto) 5.8 (0.0-15.0) % Eos % (Auto) 3.2 (0.0-7.0) % Baso % (Auto) 0.4 (0.0-1.5) % Neut # (Auto) 6.2 H (1.4-5.7) K/uL Lymph # (Auto) 2.3 (0.6-2.4) K/uL [place] # (Auto) 0.5 (0.0-0.8) K/uL Eos # (Auto) 0.3 (0.0-0.7) K/uL Baso # (Auto) 0.0 (0.0-0.1) K/uL Nucleated RBC % 0.0 /100WBC Nucleated RBCs # 0 K/uL Sodium 137 (136-145) mmol/L Potassium 3.6 (3.5-5.1) mmol/L Chloride 102 (98-107) mmol/L Carbon Dioxide 23.9 (21.0-32.0) mmol/L BUN 6 L (7.0-18.0) mg/dL Creatinine 0.7 (0.6-1.0) mg/dL Est Cr Clr Drug Dosing 111.16 mL/min Estimated GFR (MDRD) > 60.0 ml/min Glucose 84 (74-106) mg/dL Calcium 8.8 (8.5-10.1) mg/dL Total Bilirubin 0.3 (0.2-1.0) mg/dL AST 14 L (15-37) IU/L ALT 19 (14-63) IU/L Alkaline Phosphatase 85 (46-116) U/L Total Protein 7.7 (6.4-8.2) g/dL Albumin 2.9 L (3.4-5.0) g/dL Globulin 4.8 H (2.6-4.0) g/dL Albumin/Globulin Ratio 0.6 L (0.9-1.6) Lipase 90 (73-393) U/L Urine Color YELLOW Urine Appearance SLT CLOUDY Urine pH 6.0 (5.0-8.0) Ur Specific [place] 1.020 (1.001-1.035) Urine Protein NEGATIVE (NEGATIVE) mg/dL Urine Glucose (UA) NEGATIVE (NEGATIVE) mg/dL Urine Ketones NEGATIVE (NEGATIVE) mg/dL Urine Occult Blood NEGATIVE (NEGATIVE) Urine Nitrite NEGATIVE (NEGATIVE) Urine Bilirubin NEGATIVE (NEGATIVE) Urine Urobilinogen 0.2 (<2.0) EU/dL Ur Leukocyte Esterase NEGATIVE (NEGATIVE) Meds: Medications Discontinued Medications Generic Name Dose Route Start Last Admin Trade Name Freq PRN Reason Stop Dose Admin Sodium Chloride 1,000 mls @ 1,000 mls/hr 08/13/19 08:42 08/13/19 08:52 Normal Saline IV 08/13/19 09:41 1,000 mls/hr .Bolus ONE Administration Ondansetron HCl 4 mg 08/13/19 08:42 08/13/19 08:52 Zofran IVPUSH 08/13/19 08:43 4 mg ONETIME ONE Administration Departure - Departure Time of Disposition: 09:52 Disposition: Home, Self-Care 01 Clinical Impression: Abdominal pain, Daily nausea - Discharge Information Prescriptions: Ondansetron [Zofran ODT] 4 mg PO Q6H PRN #10 tab.dis PRN Reason: nausea Referrals: PCP,None [Primary Care Provider] - Joyce Robles CNM [Mid-] - 08/13/19 2:00 pm (Please arrive 20-30 minutes early. Bring Photo ID and insurance cards ) Forms: ED Department Discharge Additional Instructions: You were in seen in the [facility] Emergency Department for evaluation of abdominal pain and nausea, the time of your evaluation the cause of your symptoms is unclear. You may take the prescribed Zofran for treatment of nausea and acetaminophen for pain. Please return to the emergency department if you have any new or concerning symptoms. Please read and follow all of the instructions below. Please follow up with your primary care physician within 24 hours repeat evaluation. When calling for follow-up care, please make the office aware that this follow-up is from your recent emergency room visit. If for any reason you are refused follow-up, please contact the [facility] Emergency Department at and asked to speak to the emergency department charge nurse. Your care today was limited to identifying and treating emergent medical problems only. Many people have subtle differences in their test results that require follow up with their outpatient physician(s) to correctly determine if this represents a normal variation or concerning abnormality with respect to your specific health. The care given to you today was limited to identifying and treating emergent medical problems - you need to request a copy of all of your medical records from today's visit and follow up with your outpatient physician(s) to review both today's visit and your overall health. If you have any new symptoms or if you are at all concerned about your health please return immediately to the emergency department. Abdominal Pain The exact cause of your abdominal pain is not certain. Based upon the testing today you are felt to be at low risk for discharge. There are no current signs of a life threatening illness or injury. Your condition does not seem serious now; however, sometimes the signs of a serious problem may take more time to appear. For this reason, it is important for you to watch for any new symptoms, problems, or worsening of your condition. Over the next few days, the abdominal pain may come and go, or be continuous. Other common symptoms can include nausea and vomiting. Sometimes it can be difficult to tell if you feel nauseous , you may just feel bad and not associate that feeling with nausea. Constipation , diarrhea, and a fever may go along with the pain. The pain may continue even if treated correctly over the following days. Depending on how things go, sometimes the cause can become clear and may require further or different treatment. Additional evaluations, medications, or tests may be needed. If your symptoms do not worsen but you are still having pain after 12-24 hours, please call your primary care physician to arrange for further evaluation. Return to the emergency department if any of the following occur: Pain gets worse or moves to the right lower abdomen New or worsening vomiting or diarrhea Swelling of the abdomen Unable to pass gas or stool for more than 8 hours Fever of 100.4F (38C) or higher, or as directed by your healthcare provider. Blood in vomit or bowel movements (dark red or black color) If you have yellow skin or eyes or if you have dark brown urine. Weakness, dizziness Chest, arm, back, neck or jaw pain Unexpected vaginal bleeding or missed period Trouble breathing Confusion Fainting or loss of consciousness Rapid heart rate Seizure If you are light headed upon standing or passing out. If you are otherwise concerned about your health. Home Care Do not force yourself to eat, especially if having cramps, vomiting, or diarrhea. Water is important so you do not get dehydrated. Soup may also be good. Sports drinks may also help, especially if they are not too acidic. Make sure you don't drink sugary drinks as this can make things worse. Take liquids in small amounts. Caffeine sometimes makes the pain and cramping worse. Avoid dairy products if you have vomiting or diarrhea. Don't eat large amounts at a time. Wait a few minutes between bites. Eat a diet low in fiber (called a low-residue diet). Foods allowed include refined breads, white rice, fruit and vegetable juices without pulp, tender meats. These foods will pass more easily through the intestine. Avoid whole-grain foods, whole fruits and vegetables, meats, seeds and nuts, fried or fatty foods, dairy, alcohol and spicy foods until your symptoms go away. Ondansetron (Brand Name: Zofran) Take one tablet every 6 hours as needed for nausea SIDE EFFECTS: Headache, fever, lightheadedness, dizziness, drowsiness, tiredness , constipation. If these effects persist or worsen, notify your doctor promptly. Many people using this medication do not have serious side effects. Tell your doctor right away if you have any serious side effects, including: stomach pain, muscle stiffness/spasm, vision changes (e.g., temporary loss of vision, blurred vision, uncontrollable eye movements). Get medical help right away if any of these rare but very serious side effects occur: chest pain, fainting, slow/fast/irregular heartbeat. A very serious allergic reaction to this drug is rare. However, get medical help right away if you notice any of the following symptoms of a serious allergic reaction: rash, itching/swelling ( especially of the face/tongue/throat), severe dizziness, trouble breathing. This is not a complete list of possible side effects. If you notice other effects not listed above, contact your doctor or pharmacist. PRECAUTIONS: Before using ondansetron, tell your doctor or pharmacist if you are allergic to it; or to other serotonin blockers (e.g., granisetron); or if you have any other allergies. This product may contain inactive ingredients, which can cause allergic reactions or other problems. Talk to your pharmacist for more details. Before using this medication, tell your doctor or pharmacist your medical history, especially of: irregular heartbeat, liver disease, stomach /intestinal problems (e.g., recent abdominal surgery, ileus, swelling). Ondansetron may cause a condition that affects the heart rhythm (QT prolongation ). QT prolongation can infrequently result in serious (rarely fatal) fast/ irregular heartbeat and other symptoms (such as severe dizziness, fainting) that require immediate medical attention. The risk of QT prolongation may be increased if you have certain medical conditions or are taking other drugs that may affect the heart rhythm (see also Drug Interactions section). Before using ondansetron, tell your doctor or pharmacist if you have any of the following conditions: certain heart problems (heart failure, slow heartbeat, QT prolongation in the EKG), family history of certain heart problems (QT prolongation in the EKG, sudden cardiac ). Low levels of potassium or magnesium in the blood may also increase your risk of QT prolongation. This risk may increase if you use certain drugs (such as diuretics/"water pills") or if you have conditions such as severe sweating, diarrhea, or vomiting. Talk to your doctor about using ondansetron safely. This drug may make you dizzy or drowsy or cause blurred vision. Do not drive, use machinery, or do any activity that requires alertness or clear vision until you are sure you can perform such activities safely. Limit alcoholic beverages. Infants younger than 5 months may be more sensitive to the effects of this drug, especially diarrhea. During , this medication should be used only when clearly needed. Discuss the risks and benefits with your doctor. It is not known if this drug passes into breast milk. Consult your doctor before breast-feeding. DRUG INTERACTIONS: Drug interactions may change how your medications work or increase your risk for serious side effects. This document does not contain all possible drug interactions. Keep a list of all the products you use (including prescription/nonprescription drugs and herbal products) and share it with your doctor and pharmacist. Do not start, stop, or change the dosage of any medicines without your doctor's approval. Some products that may interact with this drug include: apomorphine, tramadol. Many drugs besides ondansetron may affect the heart rhythm (QT prolongation), including dofetilide, pimozide, procainamide, amiodarone, quinidine, sotalol, macrolide antibiotics (such as erythromycin), among others. Therefore, before using ondansetron, report all medications you are currently using to your doctor or pharmacist. Acetaminophen (Tylenol) Please take 1,000 mg every 6 hours as needed for pain. Do no use with alcohol or other acetaminophen containing medications. SIDE EFFECTS: This drug usually has no side effects. If you do not have liver problems, the maximum dose of acetaminophen for adults is 4 grams per day (4000 milligrams). Taking more than the maximum daily amount may cause serious ( possibly fatal) liver damage. Get medical help right away if you have any of the following symptoms of liver damage: persistent nausea/vomiting, extreme tiredness, stomach/abdominal pain, yellowing eyes/skin, dark urine. If you have liver problems, consult your doctor or pharmacist for a safe dosage of this medication. A very serious allergic reaction to this drug is rare. However, get medical help right away if you notice any symptoms of a serious allergic reaction, including: rash, itching/swelling (especially of the face/tongue/ throat), severe dizziness, trouble breathing. This is not a complete list of possible side effects. If you notice other effects not listed above, contact your doctor or pharmacist. Prescriptions: If you are uninsured or have financial difficulties with filling your prescription(s), you may consider using a free pharmacy discount service such as [employer] (Spout) or [employer] (Wami). These services allow you to search for a medication on your phone (or computer) and obtain a coupon that usually has a significant discount from the list javier at a pharmacy. Your physician as well as [facility] does not have a financial relationship with either of these services. You may also wish to speak with your physician to determine if lower cost prescriptions are possible. Obtaining primary care: 1. [facility] provides pediatrics (children), family medicine (children, adults, and some obstetrical care), and internal medicine (adults). Further specialty care is also available. Same day appointments are available. They may be contacted at [phone] and are open Monday through Monday 8 AM to 5 PM. The [facility] are located at [place] [address]. 2. [facility] offers family medicine, internal medicine, [facility], and further specialty care. [facility] may be contacted at [phone]. [facility] is located at [address] [place], [address]. 3. If you have health insurance, please also contact your insurer for a list of accepting providers under your policy, you may contact these providers for further health care. Occupational health: Work related injuries may consider following up with [facility], . Occupational health services are located at [address] [place] [address] and are open Monday through Monday from 7: 30 am to 5:00 pm. Obstetrical and Gynecological Care: [facility], , Monday through Monday 8 AM to [address] [place] [address]. Eyecare: If you have an eye injury you should follow up with your crowning inspector or with [facility], at [phone] or [phone] , they are located at [address] [place] [address]. Dental Care Wes Chow DDS. [address] [facility], [place], [place]. Ph. [phone] Spencer Chow DDS MS. [address] [facility] [address], [place], [place]. Ph. Merlin Ambrocio DDS. [address] [place]. Ph. [phone] Mark Miguel DDS. [address] [facility] 4 [place], [place]. Ph. [phone] Brandon Amato DDS PC. [address] [facility] [address] [place], [place]. Ph. Dagmar Roach DDS. [address] [facility]. Ph. [phone] [facility]. [address] [place], [place]. Ph. [phone] [facility]. [address] [place] [address], [place], [place]. Ph. [phone] [facility] [address] [place] [address]. Ph. [facility]. [address] [place] [address] [address] [place], [place]. Ph. [facility]. [address] [facility] [place]. Ph. [phone] Sepsis Event Note - Evaluation Sepsis Screening Result: No Definite Risk - Focused Exam Vital Signs: Vital Signs Temp Pulse Resp BP Pulse Ox 08/13/19 08:19 36.2 C 91 16 126/43 L 100 Date Exam was Performed: 08/13/19 Time Exam was Performed: 09:52 - My Orders Last 24 Hours: My Active Orders 08/13/19 08:32 INFLUENZA A+B AG SCREEN [RM] Stat - Assessment/Plan Last 24 Hours: My Active Orders 08/13/19 08:32 INFLUENZA A+B AG SCREEN [RM] Stat
[2019-08-13 10:34] VITALS: BP 103/50; PULSE 80
== END 2019-08-13 10:36 | disposition home or self-care (01) ==
LOC: MW.ED 08:11
DX: R10.84 Generalized abdominal pain (principal); R11.0 Nausea; Z88.6 Allergy status to analgesic agent; Z88.8 Allergy status to other drugs, medicaments and biological substances; Z88.0 Allergy status to penicillin
CPT/HCPCS: 36415; 80053; 81003; 83690; 85025; 87804; 96361; 96374; 99284; J2405; J7030; 99283

== ENCOUNTER 2019-09-02 09:13 | Inpatient (IN) | payer MEDICAID, OTHER ==
[2019-09-02] MEDS ORDERED: Magnesium Sulfate/Water 2 GM in Premix Bag 1 BAG IV ONE (09:21)
[2019-09-02] MEDS ORDERED: methylPREDNISolone Sodium Succinate 125 MG/2 ML SDV IV ONE (09:22)
[2019-09-02] MEDS ORDERED: methylPREDNISolone Sodium Succinate 125 MG/2 ML SDV IVPUSH ONE (09:26)
[2019-09-02] MEDS: Albuterol/Ipratropium 3.0-0.5 MG/3 ML Neb Soln NEB ONE ×2 (09:28→09:33)
[2019-09-02] MEDS: Albuterol/Ipratropium 3.0-0.5 MG/3 ML Neb Soln ONE ×2 (09:33)
[2019-09-02 10:01] LABS: BLOOD UREA NITROGEN,BUN 8 mg/dL (7.0-18.0); CARBON DIOXIDE,CO2 24.5 mmol/L (21.0-32.0); CHLORIDE,CL 104 mmol/L (98-107); GLUCOSE RANDOM 130 mg/dL (74-106); POTASSIUM,K 3.7 mmol/L (3.5-5.1); SODIUM,NA 140 mmol/L (136-145)
[2019-09-02] MEDS ORDERED: Albuterol/Ipratropium 3.0-0.5 MG/3 ML Neb Soln NEB ONE (10:42)
--- NOTE | 2019-09-02 10:57 | EDM.PDOC ---
ED [facility] GENERAL MEDICAL PROBLEM - General Chief Complaint: Asthma Stated Complaint: TROUBLE BREATHING Time Seen by Provider: 09/02/19 10:55 Source of Information: Reports: Patient History Limitations: Reports: No Limitations - History of Present Illness INITIAL COMMENTS - FREE TEXT/NARRATIVE: Patient is a 33-year-old female with a past medical history of asthma with prior hospital admissions and intubations presenting with a chief complaint of asthma exacerbation. Patient states symptoms started around 8 AM this morning. Patient attempted to use her inhaler without any relief. Patient called 911 for transport to the hospital and received several nebulizers in route without any improvement of symptoms. Patient denies any fevers, chills, abdominal pain , lower extremity swelling. Symptoms are similar to prior asthma exacerbations. Patient states when she gets asthma exacerbations they are normally abrupt in onset and extremely severe. In addition to that documented in the HPI above, the additional ROS was obtained : Constitutional: Denies fevers or chills Eyes: Denies vision changes ENMT: Denies sore throat CV: Denies chest pain Resp: Per HPI GI: Denies vomiting or diarrhea : Denies painful urination MSK: Denies recent trauma Skin: Denies new rashes Neuro: Denies new numbness or tingling or weakness Endocrine: Denies unexpected weight loss Heme: Denies bleeding disorders I have reviewed the triage vital signs Const: Well nourished, well developed, appears stated age Eyes: PERRL, no conjunctival injection HENT: NCAT, Neck supple without meningismus CV: RRR, Warm, well-perfused extremities RESP: Significant respiratory distress unable to speak more than 2 word sentences. Using intercostal muscles. GI: soft, non-tender, non-distended, no masses MSK: Extremities are cool to touch no gross deformities appreciated Skin: Warm, dry. No rashes Neuro: Alert, finish mixer II-XII grossly intact. Sensation and motor function of extremities grossly intact. Psych: Appropriate mood and affect Assessment and plan: Patient is a 33-year-old female with severe asthma exacerbation. Patient required BiPAP initially after arrival due to severe respiratory distress after having received Solu-Medrol, magnesium, several nebulizer treatments her breathing were improved and she was able to maintain saturations in the low to mid 90s on 2 L of nasal cannula. Given patient's significant history and respiratory status patient will require observation in the hospital. Patient continues to be short of breath despite aggressive intervention. Broad differential diagnosis considered including pulmonary embolism, pneumonia, pneumothorax. However, based on the patient's history and exam I believe asthma exacerbation is most consistent with the patient's diagnosis at this time. Patient agrees with the plan. Headache Pain Score (Numeric/FACES): 6 - Related Data Allergies Allergy/AdvReac Type Severity Reaction Status Date / Time aspirin Allergy Anaphylactic Verified 09/02/19 13:36 Shock azithromycin [From Zithromax] Allergy Anaphylactic Verified 09/02/19 13:36 Shock ibuprofen [From Motrin] Allergy Anaphylactic Verified 09/02/19 13:36 Shock ketorolac [From Toradol] Allergy Anaphylactic Verified 09/02/19 13:36 Shock montelukast [From Singulair] Allergy Anaphylactic Verified 09/02/19 13:36 Shock Penicillins Allergy Anaphylactic Verified 09/02/19 13:36 Shock Home Meds: Home Meds Budesonide/Formoterol Fumarate [Symbicort 160-4.5 Mcg Inhaler] 2 puff IH BID 05/31 [History] Loratadine [Claritin] 10 mg PO DAILY PRN 07/31/18 [History] Past Medical History HEENT History: Reports: Allergic Rhinitis, Other (See Below) Other HEENT History: wears glasses, hyposmia Cardiovascular History: Reports: None Other Cardiovascular History: murmur with 2nd Respiratory History: Reports: Asthma Gastrointestinal History: Reports: Gastritis, GERD Other Gastrointestinal History: reflux relieved with baking soda and water, tums as needed Genitourinary History: Reports: None ASSOCIATE PROGRAMMER History: Reports: Ectopic , Other ASSOCIATE PROGRAMMER History: 5 months post Musculoskeletal History: Reports: None Neurological History: Reports: Other (See Below) Psychiatric History: Reports: None Endocrine/Metabolic History: Reports: Obesity/BMI 30+ Hematologic History: Reports: None Immunologic History: Reports: None Oncologic (Cancer) History: Reports: None Dermatologic History: Reports: Eczema Other Dermatologic History: left axilla hidrandenitis supurativa - Infectious Disease History Infectious Disease History: Reports: Chicken Pox - Past Surgical History Head Surgeries/Procedures: Reports: None HEENT Surgical History: Reports: Naso-Sinus Surgery Other HEENT Surgeries/Procedures: removal of nasal polyp, sinus surgery Cardiovascular Surgical History: Reports: None Respiratory Surgical History: Reports: None GI Surgical History: Reports: None Female Surgical History: Reports: Section, Tubal Ligation, Other ( See Below) Other Female Surgeries/Procedures: laparotomy for ectopic , previous c/section x4, ETOP x2 Endocrine Surgical History: Reports: None Neurological Surgical History: Reports: None Social & Family History - Family History Family Medical History: Noncontributory Cardiac: Reports: Cardiomyopathy, Heart Failure, Hypertension Respiratory: Reports: Asthma OBGYN: Reports: Neurological: Reports: Other (See Below) Other Neurological Family History: Epilepsy Endocrine/Metabolic: Reports: Diabetes, type II Oncologic: Reports: Breast, Colon, Lung - Tobacco Use Smoking Status *Q: Unknown Ever Smoked - Caffeine Use Caffeine Use: Reports: None - Recreational Drug Use Recreational Drug Use: No ED ROS GENERAL - Review of Systems Review Of Systems: See Below ED EXAM, GENERAL - Physical Exam Exam: See Below Course - Vital Signs Last Recorded V/S: Last Vital Signs Temp 36.6 C 09/02/19 16:00 Pulse 113 H 09/02/19 10:52 Resp 20 09/02/19 16:00 BP 123/57 L 09/02/19 16:00 Pulse Ox 93 L 09/02/19 16:00 - Orders/Labs/Meds Orders: Active Orders 24 hr Category Date Time Status Patient Status [ADT] Routine ADT 09/02/19 12:05 Active Antiembolic Devices [RC] PER UNIT ROUTINE Care 09/02/19 12:08 Active BIPAP [RT BiPAP/CPAP] [RC] ASDIRECTED Care 09/02/19 09:51 Active Cardiac Monitoring [RC] . DIRECTED Care 09/02/19 12:08 Active Height and Weight [RC] DAILY Care 09/02/19 12:05 Active Intake and Output [RC] QSHIFT Care 09/02/19 12:07 Active Oxygen Therapy [RC] PRN Care 09/02/19 12:05 Active RT Aerosol Therapy [RC] ASDIRECTED Care 09/02/19 09:24 Active RT Aerosol Therapy [RC] ASDIRECTED Care 09/02/19 10:42 Active Up With Assistance [RC] ASDIRECTED Care 09/02/19 12:05 Active VTE/DVT Education [RC] PER UNIT ROUTINE Care 09/02/19 12:05 Active Vital Signs [RC] Q1H Care 09/02/19 12:05 Active Regular Diet [DIET] Diet 09/02/19 Lunch Active Acetaminophen [Tylenol] Med 09/02/19 12:05 Active 650 mg PO Q4H PRN Ondansetron [Zofran] Med 09/02/19 12:05 Active 4 mg IVPUSH Q4H PRN Sodium Chloride 0.9% [Saline Flush] Med 09/02/19 12:05 Active 10 ml FLUSH ASDIRECTED PRN Sodium Chloride 0.9% [Saline Flush] Med 09/02/19 12:05 Active 2.5 ml FLUSH ASDIRECTED PRN Saline Lock Insert [OM.PC] Routine Oth 09/02/19 12:05 Ordered Sequential Compression Device [OM.PC] Per Unit Routine Oth 09/02/19 12:07 Ordered Resuscitation Status Routine Resus Stat 09/02/19 12:05 Ordered Medication Orders Acetaminophen (Tylenol) 650 mg PO Q4H PRN PRN Reason: Pain (mild 1-3) Albuterol/Ipratropium (Duoneb 3.0-0.5 Mg/3 Ml) 3 ml NEB QIDRT [facility] Last Admin: 09/02/19 15:25 Dose: 3 ml Albuterol/Ipratropium (Duoneb 3.0-0.5 Mg/3 Ml) 3 ml NEB Q2H PRN PRN Reason: wheezing/SOB Budesonide (Pulmicort) 0.5 mg NEB BIDRT [facility] Last Admin: 09/02/19 12:55 Dose: 0.5 mg Loratadine (Claritin) 10 mg PO DAILY [facility] Last Admin: 09/02/19 12:55 Dose: 10 mg Methylprednisolone Sodium Succinate (Solu-Medrol) 40 mg IVPUSH Q6H [facility] Last Admin: 09/02/19 15:44 Dose: 40 mg Ondansetron HCl (Zofran) 4 mg IVPUSH Q4H PRN PRN Reason: Nausea Sodium Chloride (Saline Flush) 10 ml FLUSH ASDIRECTED PRN PRN Reason: Keep Vein Open Sodium Chloride (Saline Flush) 2.5 ml FLUSH ASDIRECTED PRN PRN Reason: Keep Vein Open Labs: Laboratory Tests 09/02/19 09/02/19 09/02/19 Range/Units 09:24 09:24 09:24 WBC 9.29 (4.0-11.0) K/uL RBC 4.74 (4.30-5.90) M/uL Hgb 14.0 (12.0-16.0) g/dL Hct 41.7 (36.0-46.0) % MCV 88.0 (80.0-98.0) fL MCH 29.5 (27.0-32.0) pg MCHC 33.6 (31.0-37.0) g/dL RDW Std Deviation 46.1 (28.0-62.0) fl RDW Coeff of Munir 14 (11.0-15.0) % Plt Count 277 (150-400) K/uL MPV 9.80 (7.40-12.00) fL Neut % (Auto) 49.9 (48.0-80.0) % Lymph % (Auto) 41.6 H (16.0-40.0) % Leslie % (Auto) 5.1 (0.0-15.0) % Eos % (Auto) 3.1 (0.0-7.0) % Baso % (Auto) 0.3 (0.0-1.5) % Neut # (Auto) 4.6 (1.4-5.7) K/uL Lymph # (Auto) 3.9 H (0.6-2.4) K/uL Leslie # (Auto) 0.5 (0.0-0.8) K/uL Eos # (Auto) 0.3 (0.0-0.7) K/uL Baso # (Auto) 0.0 (0.0-0.1) K/uL Nucleated RBC % 0.0 /100WBC Nucleated RBCs # 0 K/uL VBG pH 7.28 L (7.31-7.41) VBG pCO2 52 H (35-45) mmHG VBG pO2 92 H (30-40) mmHG VBG HCO3 24 (22-30) mEq/L VBG Total CO2 22 L (41-51) mmol/L VBG Base Excess -3.2 L (-3.0-3.0) Sodium 140 (136-145) mmol/L Potassium 3.7 (3.5-5.1) mmol/L Chloride 104 (98-107) mmol/L Carbon Dioxide 24.5 (21.0-32.0) mmol/L BUN 8 (7.0-18.0) mg/dL Creatinine 0.6 (0.6-1.0) mg/dL Est Cr Clr Drug Dosing 129.69 mL/min Estimated GFR (MDRD) > 60.0 ml/min Glucose 130 H (74-106) mg/dL Calcium 8.9 (8.5-10.1) mg/dL Total Bilirubin 0.2 (0.2-1.0) mg/dL AST 18 (15-37) IU/L ALT 20 (14-63) IU/L Alkaline Phosphatase 83 (46-116) U/L Total Protein 7.1 (6.4-8.2) g/dL Albumin 2.7 L (3.4-5.0) g/dL Globulin 4.4 H (2.6-4.0) g/dL Albumin/Globulin Ratio 0.6 L (0.9-1.6) Meds: Medications Generic Name Dose Route Start Last Admin Trade Name Freq PRN Reason Stop Dose Admin Acetaminophen 650 mg 09/02/19 12:05 Tylenol PO Q4H PRN Pain (mild 1-3) Albuterol/Ipratropium 3 ml 09/02/19 16:00 09/02/19 15:25 Duoneb 3.0-0.5 Mg/3 Ml NEB 3 ml QIDRT [facility] Administration Albuterol/Ipratropium 3 ml 09/02/19 12:19 Duoneb 3.0-0.5 Mg/3 Ml NEB Q2H PRN wheezing/SOB Budesonide 0.5 mg 09/02/19 12:30 09/02/19 12:55 Pulmicort NEB 0.5 mg BIDRT [facility] Administration Loratadine 10 mg 09/02/19 12:30 09/02/19 12:55 Claritin PO 10 mg DAILY [facility] Administration Methylprednisolone Sodium Succinate 40 mg 09/02/19 15:30 09/02/19 15:44 Solu-Medrol IVPUSH 40 mg Q6H [facility] Administration Ondansetron HCl 4 mg 09/02/19 12:05 Zofran IVPUSH Q4H PRN Nausea Sodium Chloride 10 ml 09/02/19 12:05 Saline Flush FLUSH ASDIRECTED PRN Keep Vein Open Sodium Chloride 2.5 ml 09/02/19 12:05 Saline Flush FLUSH ASDIRECTED PRN Keep Vein Open Discontinued Medications Generic Name Dose Route Start Last Admin Trade Name Minh PRN Reason Stop Dose Admin Albuterol/Ipratropium 3 ml 09/02/19 09:24 09/02/19 09:33 Duoneb 3.0-0.5 Mg/3 Ml NEB 09/02/19 09:25 3 ml ONETIME ONE Administration Albuterol/Ipratropium Confirm 09/02/19 09:23 09/02/19 09:33 Duoneb 3.0-0.5 Mg/3 Ml Administered 09/02/19 09:24 3 ml Dose Administration 3 ml .ROUTE .STK-MED ONE Albuterol/Ipratropium 3 ml 09/02/19 10:42 09/02/19 13:09 Duoneb 3.0-0.5 Mg/3 Ml NEB 09/02/19 10:43 Not Given ONETIME ONE Magnesium Sulfate 2 gm/ Premix 50 mls @ 50 mls/hr 09/02/19 09:21 09/02/19 09: 32 IV 09/02/19 10:20 50 mls/hr ONETIME ONE Administration Methylprednisolone Sodium Succinate 125 mg 09/02/19 09:22 09/02/19 09:34 Solu-Medrol IV 09/02/19 09:23 Not Given ONETIME ONE Methylprednisolone Sodium Succinate 125 mg 09/02/19 09:26 09/02/19 09:33 Solu-Medrol IVPUSH 09/02/19 09:27 125 mg ONETIME ONE Administration Departure - Departure Time of Disposition: 11:00 Disposition: Admitted As Inpatient 66 Clinical Impression: Asthma with status asthmaticus - Discharge Information Sepsis Event Note - Evaluation Sepsis Screening Result: No Definite Risk - Focused Exam Vital Signs: Vital Signs Temp Pulse Resp BP Pulse Ox 09/02/19 10:52 113 H 19 139/62 94 L 09/02/19 10:12 132 H 22 H 133/59 L 98 09/02/19 09:49 140 H 24 H 155/76 H 99 09/02/19 09:16 36.2 C 135 H 24 H 73/59 L 100 Date Exam was Performed: 09/02/19 Time Exam was Performed: 17:26 - My Orders Last 24 Hours: My Active Orders 09/02/19 09:24 RT Aerosol Therapy [RC] ASDIRECTED 09/02/19 09:51 BIPAP [RT BiPAP/CPAP] [RC] ASDIRECTED 09/02/19 10:42 RT Aerosol Therapy [RC] ASDIRECTED - Assessment/Plan Last 24 Hours: My Active Orders 09/02/19 09:24 RT Aerosol Therapy [RC] ASDIRECTED 09/02/19 09:51 BIPAP [RT BiPAP/CPAP] [RC] ASDIRECTED 09/02/19 10:42 RT Aerosol Therapy [RC] ASDIRECTED
[2019-09-02] MEDS ORDERED: Sodium Chloride 0.9% 10 ML Syringe FLUSH PRN (12:05)
[2019-09-02] MEDS ORDERED: Acetaminophen 325 MG Tab PO PRN (12:05)
[2019-09-02] MEDS ORDERED: Ondansetron 4 MG/2 ML SDV IVPUSH PRN (12:05)
[2019-09-02] MEDS ORDERED: Sodium Chloride 0.9% 2.5 ML Syringe FLUSH PRN (12:05)
[2019-09-02] MEDS ORDERED: Albuterol/Ipratropium 3.0-0.5 MG/3 ML Neb Soln NEB PRN (12:19)
--- NOTE | 2019-09-02 12:41 | PCM.HP.2 ---
H&P History of Present Illness - General Date of Service: 09/02/19 Admit Problem/Dx: Admission Diagnosis/Problem Admission Diagnosis/Problem Respiratory failure Source of Information: Patient, Old Records History Limitations: Reports: No Limitations - History of Present Illness Initial Comments - Free Text/Narative: This 33 year old female with pmh of asthma with intubations from anaphylaxis reactions presented to the ED today with concerns of severe dyspnea. She called EMS as she suddenly started having shortness of breath and significant wheezing. She reports everyone in her household has a cold, as does she. She reports generalized malaise, sinus congestion and shortness of breath. She denies fevers or chills. No chest pain. She denies swelling. She reports she has been out of her maintenance inhaler, since this fall. She reports she has been using Ventolin inhaler from her mom, which she states she using 3-4 times daily to help with shortness of breath. She denies smoking, reports smokes but outside. She denies vaping, does reports history of smoking marijuana. She denies any pets within the home. Related asthma concerns to allergies, stating she has been intubated from medication reactions and anaphylaxis, Toradol. She does report she is 22 weeks , denies influenza vaccine this year and has yet to follow with any care for this . She reports she fell at home last night after slipping on a toy. She landed on her R flank/ abdomen. After the fall she has some mild abdominal cramping but has felt ok since. Will reach out to OB provider for consultation. In the ED, no leukocytosis noted, she was treated with multiple Duonebs in EMS and placed on oxygen for hypoxia,. She was given more Duonebs, Magnesium and Solumedrol in the ED and initially placed on Bipap. ED provider removed her from Bipap and she was placed on 2 L NC. She reports feeling much improved from arrival or even this morning. She will be admitted for Acute hypoxic respiratory failure secondary to asthma exacerbation. - Related Data Allergies/Adverse Reactions: Allergies Allergy/AdvReac Type Severity Reaction Status Date / Time aspirin Allergy Anaphylactic Verified 09/02/19 09:16 Shock azithromycin [From Zithromax] Allergy Anaphylactic Verified 09/02/19 09:16 Shock ibuprofen [From Motrin] Allergy Anaphylactic Verified 09/02/19 09:16 Shock ketorolac [From Toradol] Allergy Anaphylactic Verified 09/02/19 09:16 Shock montelukast [From Singulair] Allergy Anaphylactic Verified 09/02/19 09:16 Shock Penicillins Allergy Anaphylactic Verified 09/02/19 09:16 Shock Home Medications: Home Meds Budesonide/Formoterol Fumarate [Symbicort 160-4.5 Mcg Inhaler] 2 puff IH BID 05/31 [History] Loratadine [Claritin] 10 mg PO DAILY PRN 07/31/18 [History] Ondansetron [Zofran ODT] 4 mg PO Q6H PRN #10 tab.dis 08/13/19 [Rx] Past Medical History HEENT History: Reports: Allergic Rhinitis, Other (See Below) Other HEENT History: wears glasses, hyposmia Cardiovascular History: Reports: None Other Cardiovascular History: murmur with 2nd Respiratory History: Reports: Asthma Gastrointestinal History: Reports: Gastritis, GERD Other Gastrointestinal History: reflux relieved with baking soda and water, tums as needed Genitourinary History: Reports: None 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: Ectopic , Other OB/BYN History: 5 months post Musculoskeletal History: Reports: None Neurological History: Reports: Seizure (febrile as a child) Psychiatric History: Reports: None Endocrine/Metabolic History: Reports: Obesity/BMI 30+ Hematologic History: Reports: None Immunologic History: Reports: None Oncologic (Cancer) History: Reports: None Dermatologic History: Reports: Eczema Other Dermatologic History: left axilla hidrandenitis supurativa - Infectious Disease History Infectious Disease History: Reports: Chicken Pox - Past Surgical History Head Surgeries/Procedures: Reports: None HEENT Surgical History: Reports: Naso-Sinus Surgery Other HEENT Surgeries/Procedures: removal of nasal polyp, sinus surgery Cardiovascular Surgical History: Reports: None Respiratory Surgical History: Reports: None GI Surgical History: Reports: None Female Surgical History: Reports: Section, Tubal Ligation, Other ( See Below) Other Female Surgeries/Procedures: laparotomy for ectopic , previous c/section x4, ETOP x2 Endocrine Surgical History: Reports: None Neurological Surgical History: Reports: None Social & Family History - Family History Family Medical History: Noncontributory Cardiac: Reports: Cardiomyopathy, Heart Failure, Hypertension Respiratory: Reports: Asthma OBGYN: Reports: Neurological: Reports: Other (See Below) Other Neurological Family History: Epilepsy Endocrine/Metabolic: Reports: Diabetes, type II Oncologic: Reports: Breast, Colon, Lung - Tobacco Use Smoking Status *Q: Never Smoker Second Hand Smoke Exposure: Yes Source of Second Hand Smoke Exposure: Second Hand Smoke Education Provided: Yes - Caffeine Use Caffeine Use: Reports: None - Alcohol Use Alcohol Use History: No - Recreational Drug Use Recreational Drug Use: No - Living Situation & Occupation Living situation: Reports: H&P Review of Systems - Review of Systems: Review Of Systems: See Below General: Reports: Malaise, Fatigue. Denies: Fever, Chills HEENT: Reports: Sinus Congestion. Denies: Headaches Pulmonary: Reports: Shortness of Breath, Wheezing, Cough. Denies: Sputum Cardiovascular: Reports: Dyspnea on Exertion. Denies: Chest Pain Gastrointestinal: Reports: No Symptoms. Denies: Abdominal Pain Genitourinary: Reports: No Symptoms. Denies: Dysuria, Frequency Musculoskeletal: Reports: No Symptoms Skin: Reports: No Symptoms Psychiatric: Reports: No Symptoms Neurological: Reports: No Symptoms Exam - Exam Exam: See Below - Vital Signs Vital Signs: Last Vital Signs Temp 97.1 F 09/02/19 09:16 Pulse 113 H 09/02/19 10:52 Resp 19 09/02/19 10:52 BP 139/62 09/02/19 10:52 Pulse Ox 94 L 09/02/19 10:52 Weight: 113.398 kg - Exam Quality Assessment: Supplemental Oxygen General: Alert, Oriented, Cooperative HEENT: Conjunctiva Clear, Mucosa Moist & Bernard, Posterior Pharynx Clear Neck: Supple Lungs: Decreased Breath Sounds, Wheezing (anteriorly), Other (lung sounds very tight throughout, very little air exchange). No: Normal Respiratory Effort ( dyspnea with speech) Cardiovascular: Regular Rate, Regular Rhythm Back Exam: Normal Inspection, Full Range of Motion Extremities: Normal Inspection, Normal Range of Motion, Non-Tender, No Pedal Edema Neuro Extensive - Mental Status: Alert, Oriented x3 Neuro Extensive - Motor, Sensory, Reflexes: CN II-XII Intact Psychiatric: Alert, Normal Affect, Normal Mood - Patient Data Lab Results Last 24 hrs: Laboratory Results - last 24 hr 09/02/19 09/02/19 09/02/19 Range/Units 09:24 09:24 09:24 WBC 9.29 (4.0-11.0) K/uL RBC 4.74 (4.30-5.90) M/uL Hgb 14.0 (12.0-16.0) g/dL Hct 41.7 (36.0-46.0) % MCV 88.0 (80.0-98.0) fL MCH 29.5 (27.0-32.0) pg MCHC 33.6 (31.0-37.0) g/dL RDW Std Deviation 46.1 (28.0-62.0) fl RDW Coeff of Munir 14 (11.0-15.0) % Plt Count 277 (150-400) K/uL MPV 9.80 (7.40-12.00) fL Neut % (Auto) 49.9 (48.0-80.0) % Lymph % (Auto) 41.6 H (16.0-40.0) % Sutton % (Auto) 5.1 (0.0-15.0) % Eos % (Auto) 3.1 (0.0-7.0) % Baso % (Auto) 0.3 (0.0-1.5) % Neut # (Auto) 4.6 (1.4-5.7) K/uL Lymph # (Auto) 3.9 H (0.6-2.4) K/uL Sutton # (Auto) 0.5 (0.0-0.8) K/uL Eos # (Auto) 0.3 (0.0-0.7) K/uL Baso # (Auto) 0.0 (0.0-0.1) K/uL Nucleated RBC % 0.0 /100WBC Nucleated RBCs # 0 K/uL VBG pH 7.28 L (7.31-7.41) VBG pCO2 52 H (35-45) mmHG VBG pO2 92 H (30-40) mmHG VBG HCO3 24 (22-30) mEq/L VBG Total CO2 22 L (41-51) mmol/L VBG Base Excess -3.2 L (-3.0-3.0) Sodium 140 (136-145) mmol/L Potassium 3.7 (3.5-5.1) mmol/L Chloride 104 (98-107) mmol/L Carbon Dioxide 24.5 (21.0-32.0) mmol/L BUN 8 (7.0-18.0) mg/dL Creatinine 0.6 (0.6-1.0) mg/dL Est Cr Clr Drug Dosing 129.69 mL/min Estimated GFR (MDRD) > 60.0 ml/min Glucose 130 H (74-106) mg/dL Calcium 8.9 (8.5-10.1) mg/dL Total Bilirubin 0.2 (0.2-1.0) mg/dL AST 18 (15-37) IU/L ALT 20 (14-63) IU/L Alkaline Phosphatase 83 (46-116) U/L Total Protein 7.1 (6.4-8.2) g/dL Albumin 2.7 L (3.4-5.0) g/dL Globulin 4.4 H (2.6-4.0) g/dL Albumin/Globulin Ratio 0.6 L (0.9-1.6) Result Diagrams: 09/02/19 09:24 09/02/19 09:24 Sepsis Event Note - Evaluation Sepsis Screening Result: No Definite Risk - Focused Exam Vital Signs: Vital Signs Temp Pulse Resp BP Pulse Ox 09/02/19 10:52 113 H 19 139/62 94 L 09/02/19 10:12 132 H 22 H 133/59 L 98 09/02/19 09:49 140 H 24 H 155/76 H 99 09/02/19 09:16 97.1 F 135 H 24 H 73/59 L 100 Date Exam was Performed: 09/02/19 Time Exam was Performed: 13:15 - Problem List (1) Acute respiratory failure with hypoxia SNOMED Code(s): 19031910, 178832623 ICD Code: J96.01 - ACUTE RESPIRATORY FAILURE WITH HYPOXIA Status: Acute Current Visit: Yes (2) Asthma exacerbation SNOMED Code(s): 642268995 ICD Code: J45.901 - UNSPECIFIED ASTHMA WITH (ACUTE) EXACERBATION Status: Acute Current Visit: No Qualifiers: Asthma severity: moderate Asthma persistence: unspecified Qualified Code( s): J45.901 - Unspecified asthma with (acute) exacerbation (3) SNOMED Code(s): 65569885 ICD Code: Z34.90 - ENCNTR FOR SUPRVSN OF NORMAL , UNSP, UNSP TRIMESTER Status: Acute Current Visit: No Qualifiers: Weeks of gestation: 22 weeks Qualified Code(s): Z3A.22 - 22 weeks gestation of Problem List Initiated/Reviewed/Updated: Yes Orders Last 24hrs: Active Orders 24 hr Category Date Time Status Patient Status [ADT] Routine ADT 09/02/19 12:05 Active Antiembolic Devices [RC] PER UNIT ROUTINE Care 09/02/19 12:08 Active BIPAP [RT BiPAP/CPAP] [RC] ASDIRECTED Care 09/02/19 09:51 Active Cardiac Monitoring [RC] . DIRECTED Care 09/02/19 12:08 Active Height and Weight [RC] DAILY Care 09/02/19 12:05 Active Intake and Output [RC] QSHIFT Care 09/02/19 12:07 Active Notify Provider Consults [RC] ASDIRECTED Care 09/02/19 12:21 Ordered Oxygen Therapy [RC] PRN Care 09/02/19 12:05 Active RT Aerosol Therapy [RC] ASDIRECTED Care 09/02/19 09:24 Active RT Aerosol Therapy [RC] ASDIRECTED Care 09/02/19 10:42 Active RT Aerosol Therapy [RC] ASDIRECTED Care 09/02/19 12:19 Ordered RT Aerosol Therapy [RC] ASDIRECTED Care 09/02/19 12:30 Ordered Up With Assistance [RC] ASDIRECTED Care 09/02/19 12:05 Active VTE/DVT Education [RC] PER UNIT ROUTINE Care 09/02/19 12:05 Active Vital Signs [RC] Q1HR Care 09/02/19 12:05 Active Consult to Physician [CONS] Routine Cons 09/02/19 12:20 Ordered Regular Diet [DIET] Diet 09/02/19 Lunch Active Chest 1V Frontal [CR] Routine Exams 09/02/19 12:32 Ordered OB Ltd 1 or More Fetus [US] Urgent Exams 09/02/19 12:12 Ordered INFLUENZA A+B AG SCREEN [RM] Stat Lab 09/02/19 12:11 Ordered Acetaminophen [Tylenol] Med 09/02/19 12:05 Active 650 mg PO Q4H PRN Albuterol/Ipratropium [DuoNeb 3.0-0.5 MG/3 ML] Med 09/02/19 12:19 Ordered 3 ml NEB Q2H PRN Albuterol/Ipratropium [DuoNeb 3.0-0.5 MG/3 ML] Med 09/02/19 16:00 Ordered 3 ml NEB QIDRT Budesonide [Pulmicort] Med 09/02/19 12:30 Ordered 0.5 mg NEB BIDRT Loratadine [Claritin] Med 09/02/19 12:30 Ordered 10 mg PO DAILY Ondansetron [Zofran] Med 09/02/19 12:05 Active 4 mg IVPUSH Q4H PRN Sodium Chloride 0.9% [Saline Flush] Med 09/02/19 12:05 Active 10 ml FLUSH ASDIRECTED PRN Sodium Chloride 0.9% [Saline Flush] Med 09/02/19 12:05 Active 2.5 ml FLUSH ASDIRECTED PRN methylPREDNISolone Sod Succ [Solu-MEDROL] Med 09/02/19 15:30 Ordered 40 mg IVPUSH Q6H Saline Lock Insert [OM.PC] Routine Oth 09/02/19 12:05 Ordered Sequential Compression Device [OM.PC] Per Unit Routine Oth 09/02/19 12:07 Ordered Resuscitation Status Routine Resus Stat 09/02/19 12:05 Ordered Medication Orders Acetaminophen (Tylenol) 650 mg PO Q4H PRN PRN Reason: Pain (mild 1-3) Albuterol/Ipratropium (Duoneb 3.0-0.5 Mg/3 Ml) 3 ml NEB QIDRT LAZARUS Albuterol/Ipratropium (Duoneb 3.0-0.5 Mg/3 Ml) 3 ml NEB Q2H PRN PRN Reason: wheezing/SOB Budesonide (Pulmicort) 0.5 mg NEB BIDRT LAZARUS Loratadine (Claritin) 10 mg PO DAILY LAZARUS Methylprednisolone Sodium Succinate (Solu-Medrol) 40 mg IVPUSH Q6H LAZARUS Ondansetron HCl (Zofran) 4 mg IVPUSH Q4H PRN PRN Reason: Nausea Sodium Chloride (Saline Flush) 10 ml FLUSH ASDIRECTED PRN PRN Reason: Keep Vein Open Sodium Chloride (Saline Flush) 2.5 ml FLUSH ASDIRECTED PRN PRN Reason: Keep Vein Open Assessment/Plan Comment:: This 33 year old female admitted with acute hypoxic respiratory failure and asthma exacerbation 1. Acute hypoxic respiratory failure secondary to asthma exacerbation: Continue Oxygen therapy. Keep sats 90% and higher. Continue Duonebs every 4 hours and PRN for dyspnea and wheezing. Continue Solumedrol 40 mg IV every 6 hours. Add Pulmicort neb BID. Will obtain CXR and influenza swab now. Continue Claritin. Will discuss with pharmacy regarding assistance with obtaining maintenance inhaler for home along with rescue inhaler. 2. : Monitor FHT, US recommended by SHILPI Cook. She will come exam patient this afternoon. VTE prophylaxis: SCDs and ambulation Dispo: 2-3 days pending improvement. Discussed care with Dr Rojas who was in room during interview in the ED and evaluated patient, as well as with Dr Chamberlain in eICU. - Mortality Measure Prognosis:: Good
[2019-09-02] MEDS: Loratadine 10 MG Tab PO SCH (12:55)
[2019-09-02] MEDS: Budesonide 0.5 MG/2 ML Neb Susp NEB SCH ×2 (12:55→21:09)
--- NOTE | 2019-09-02 13:06 | PN ---
PALOMO Physician - Brief Progress [id number]/20/2020 12:23[facility] Corbin Taveras, HARDIK - ALBERTINA [facility] - ALBERTINA STEVIE TEJADADate of Service 09/02/2019 12:23HPI/Events of Note eICU admission [id number] female with past medical history of asthma and 22 weeks pregn mohit who presented to the ED with complaints of acute onset dyspnea. She mentions that she had acute onset of shortness of breath at 8:00 this morning with some URI symptoms(nasal congestion). She use d an inhaler at that time without any relief and called 911. In route to the hospital she received m ultiple duo nebs without any improvement. In the ED patient was found to be tachycardic in the 140s and tachypneic in the 20s and was subsequently placed on BiPAP. She was given further nebulizer mckenzie tments and started on Solu-Medrol and admitted to the ICU. Of note, patient has had prior hospitaliza tions for asthma exacerbation and has been intubated once in the past for an anaphylactic reaction to NSAIDs. She also mentions that when she does get asthma exacerbations they usually are acute in ons et and extremely severe. She was previously on Symbicort and has not been taking her medication sinc e April 2019 due to insurance reasons. Patient looks comfortable on nasal canula, speaking in com plete sentences having OB u/s performed. Vitals: Reviewed HR 98, RR 15, sats 96%EMR/Labs reviewedCXR pendingAcute asthma exacerbationBipap as tolerated- ABG on arrival to ICUAgree with CXR to r/o Infect ious etiologyFlu swab for A and B vs BiofireScheduled Duo-nebs q4h and Pulmicort nebulized BIDSolumed rol 40mg daily, if she continues have decreased air movement we can change to q6h for today. If patie nt has chronic sinus drainage issues will recommend starting montelukast 10mg dailyPlace on glycemic protocol with BS control to 140-180 if she is persistently hyperglycemicIf she continues to have ches t tightness/dyspnea or states any other risk factors for PE, will need to do LE duplex vs CTPE Curren tly with exam findings low concern for CHF/Cardiomyopathy. - Agree with OB consult for furth er evaluation. DVT prophy- Heparin SqGI prophy- given patient is on steroids, will recommend H2 block er.Interventions Major-Hypoxemia - evaluation and management, Other: Asthma Exacerbation; 2 2 weeks
--- NOTE | 2019-09-02 13:40 | US ---
Limited obstetrical ultrasound: Multiple real-time images were obtained. Comparison: No prior imaging for current is available. Dates: Current ultrasound: JOE 01/06/20, gestational age 22 weeks 0 days presentation: Cephalic Placenta: Posterior with no findings of placental abruption or placental previa Amniotic fluid: VERONICA 13.28 cm Measurements: BPD: 5.18 cm - 21 weeks 5 days Head circumference: 19.79 cm - 22 weeks 0 days Abdominal circumference: 17.10 cm - 22 weeks 1 day Femur length: 3.79 cm - 22 weeks 1 day Estimated weight: 473 g (1 lb. 1 oz.) Heart rate: 156 BPM Impression: 1. Single intrauterine fetus currently cephalic in presentation. Dates as noted above. 2. Posterior placenta with no findings of abruption or placenta previa 3. Normal VERONICA. Note: No complicating process is seen by ultrasound exam. Diagnostic code #1 This report was dictated in [place] Standard Time
[2019-09-02] MEDS: Albuterol/Ipratropium 3.0-0.5 MG/3 ML Neb Soln NEB SCH ×2 (15:25→21:09)
[2019-09-02] MEDS: methylPREDNISolone Sodium Succinate 40 MG/1 ML SDV IVPUSH SCH ×2 (15:44→21:37)
--- NOTE | 2019-09-02 17:09 | CR ---
Chest: AP view of the chest was obtained. Comparison: Previous chest x-ray of 07/07/17. Heart size and mediastinum are within normal limits for AP technique. Lungs are clear with no acute parenchymal change. Bony structures are grossly intact. Impression: 1. Nothing acute is appreciated on AP chest x-ray. Diagnostic code #1 This report was dictated in [place] Standard Time
[2019-09-03] MEDS: methylPREDNISolone Sodium Succinate 40 MG/1 ML SDV IVPUSH SCH ×2 (03:18→08:35)
[2019-09-03 05:41] LABS: BLOOD UREA NITROGEN,BUN 8 mg/dL (7.0-18.0); CARBON DIOXIDE,CO2 19.7 mmol/L (21.0-32.0); CHLORIDE,CL 104 mmol/L (98-107); GLUCOSE RANDOM 140 mg/dL (74-106); POTASSIUM,K 4.5 mmol/L (3.5-5.1); SODIUM,NA 136 mmol/L (136-145)
[2019-09-03] MEDS: Budesonide 0.5 MG/2 ML Neb Susp NEB SCH (05:47)
[2019-09-03] MEDS: Albuterol/Ipratropium 3.0-0.5 MG/3 ML Neb Soln NEB SCH ×2 (05:47→10:53)
[2019-09-03] MEDS: Loratadine 10 MG Tab PO SCH (08:12)
[2019-09-03] MEDS ORDERED: Budesonide/Formoterol 160-4.5 MCG/Puff 6 GM Inhaler INH SCH (10:00)
--- NOTE | 2019-09-03 10:31 | PN ---
THC Physician - Brief Progress [id number]/21/2020 10:23[facility] Corbin oliver, HARDIK - ALBERTINA ([facility]) - ALBERTINA HARTLEYSTEVIE SIMSKevynDate of Service 09/03/2019 10:23HPI/Events of Note eICU progress [id number] F with hx of Asthma and 22 week presented with acute asthma exacerbation. Overnight patient has done well remain intermittently on nasal canula. Has not require d Bipap. On camera patient doing well, sitting up in a chair on her phone, no distress. Vitals review edEMR/Labs/Imaging reviewed. Acute Asthma Exacerbation- Recommend changing solumedrol to Prednisone a t 40mg daily- If patient able to tolerate inhaler therapy with proper technique with respiratory ther apist, recommend starting Symbicort 160 BID- Keep Duo-nebs PRN- Continue Claritin- Leukocytosis likel y due to weeks gestation- Agree with FHM while in hospitalDVT Prophy- SCD orderedPPI- Herb mmend H2 blockerInterventions Major-Hypoxemia - evaluation and managementIntermediate-Bronchospasm - evaluation and treatment
[2019-09-03 13:22] VITALS: BP 133/72; PULSE 115
--- NOTE | 2019-09-03 14:10 | PCM.DCSUM1 ---
Discharge Summary - Hospital Course Brief History: This 33 year old female with pmh of asthma with intubations from anaphylaxis reactions presented to the ED today with concerns of severe dyspnea. She called EMS as she suddenly started having shortness of breath and significant wheezing. She reports everyone in her household has a cold, as does she. She reports generalized malaise, sinus congestion and shortness of breath. She denies fevers or chills. No chest pain. She denies swelling. She reports she has been out of her maintenance inhaler, since this fall. She reports she has been using Ventolin inhaler from her mom, which she states she using 3-4 times daily to help with shortness of breath. She denies smoking, reports smokes but outside. She denies vaping, does reports history of smoking marijuana. She denies any pets within the home. Related asthma concerns to allergies, stating she has been intubated from medication reactions and anaphylaxis, Toradol. She does report she is 22 weeks , denies influenza vaccine this year and has yet to follow with any care for this . She reports she fell at home last night after slipping on a toy. She landed on her R flank/abdomen. After the fall she has some mild abdominal cramping but has felt ok since. Will reach out to OB provider for consultation. In the ED, no leukocytosis noted, she was treated with multiple Duonebs in EMS and placed on oxygen for hypoxia,. She was given more Duonebs, Magnesium and Solumedrol in the ED and initially placed on Bipap. ED provider removed her from Bipap and she was placed on 2 L NC. She reports feeling much improved from arrival or even this morning. She will be admitted for Acute hypoxic respiratory failure secondary to asthma exacerbation. Diagnosis: Stroke: No - Discharge Data Discharge Date: 09/03/19 Discharge Disposition: Against Medical Advice 07 Condition: Good - Referral to Home Health Primary Care Physician: PCP None - Discharge Diagnosis/Problem(s) (1) Acute respiratory failure with hypoxia SNOMED Code(s): 81542632, 015627428 ICD Code: J96.01 - ACUTE RESPIRATORY FAILURE WITH HYPOXIA Status: Acute Current Visit: Yes (2) Asthma exacerbation SNOMED Code(s): 389556943 ICD Code: J45.901 - UNSPECIFIED ASTHMA WITH (ACUTE) EXACERBATION Status: Acute Current Visit: No Qualifiers: Asthma severity: moderate Asthma persistence: unspecified Qualified Code( s): J45.901 - Unspecified asthma with (acute) exacerbation (3) SNOMED Code(s): 43853635 ICD Code: Z34.90 - ENCNTR FOR SUPRVSN OF NORMAL , UNSP, UNSP TRIMESTER Status: Acute Current Visit: No Qualifiers: Weeks of gestation: 22 weeks Qualified Code(s): Z3A.22 - 22 weeks gestation of - Patient Summary/Data Consults: Consultations 09/02/19 12:20 Consult to Physician [CONS] Routine - Patient Instructions Diet: Regular Diet as Tolerated Activity: No Strenuous Activities Showering/Bathing: May Shower Notify Provider of: Fever, Increased Pain, Swelling and Redness, Drainage, Nausea and/or Vomiting - Discharge Plan Prescriptions/Med Rec: Albuterol [Ventolin HFA] 1 puff INH Q4H PRN #1 inh PRN Reason: shortnessofbreath/wheezing Albuterol/Ipratropium [DuoNeb 3.0-0.5 MG/3 ML] 3 ml NEB Q6H PRN #1 box PRN Reason: shortnessofbreath/wheezing Budesonide/Formoterol Fumarate [Symbicort 160-4.5 Mcg Inhaler] 1 puff IH BID #1 hfa.aer.ad predniSONE [Prednisone] 40 mg PO DAILY #6 tablet Home Medications: Home Meds Budesonide/Formoterol Fumarate [Symbicort 160-4.5 Mcg Inhaler] 2 puff IH BID 05/31 [History] Loratadine [Claritin] 10 mg PO DAILY PRN 07/31/18 [History] Albuterol [Ventolin HFA] 1 puff INH Q4H PRN #1 inh 09/03/19 [Rx] Albuterol/Ipratropium [DuoNeb 3.0-0.5 MG/3 ML] 3 ml NEB Q6H PRN #1 box 09/03/19 [Rx] Budesonide/Formoterol Fumarate [Symbicort 160-4.5 Mcg Inhaler] 1 puff IH BID #1 hfa.aer.ad 09/03/19 [Rx] predniSONE [Prednisone] 40 mg PO DAILY #6 tablet 09/03/19 [Rx] Patient Handouts: Hypoxia Referrals: Mirian Driver MD [Physician] - PCP,None [Primary Care Provider] - - Discharge Summary/Plan Comment DC Time >30 min.: No Discharge Summary/Plan Comment: Admitting Diagnoses: Acute hypoxic respiratory failure secondary to asthma exacerbation Discharge Diagnoses: Acute hypoxic respiratory failure secondary to asthma exacerbation Other pmh: 22 weeks Environmental allergies Berny was admitted with acute hypoxic respiratory failure secondary to asthma exacerbation. She was treated with Solumedrol, Duonebs, and oxygen therapy. She improved steadily and was weaned off oxygen. CXR negative for pneumonia. Today she is feeling improved, tachycardia remains at 115-120s. She reports breathing is significantly improved and she is not dyspnea with ambulation, but HR does elevated to 130s. She denies chest pain or SOB with this. She was recommended to stay tonight for further monitoring, but she declined. She states she needs to get home to her children as her works tonight and they have no one to help with care of their children. She was counseled on importance to stay, but continues to want discharge. She will need to sign AMA form, she is agreeable with this. She will be sent Symbicort, Duonebs, and small 4 day taper of Prednisone for home use. She is to follow up with PCP in 1 week as well as highly recommending care. She reports Joyce saw her yesterday, no concerns from fall noted on US yesterday. She is to return to ED or clinic if concerns should arise. - Patient Data Vitals - Most Recent: Last Vital Signs Temp 98 F 09/03/19 08:00 Pulse 115 H 09/03/19 13:00 Resp 22 H 09/03/19 13:00 BP 133/72 09/03/19 13:00 Pulse Ox 93 L 09/03/19 13:00 Weight - Most Recent: 89.2 kg I&O - Last 24 hours: Intake & Output 09/02/19 09/03/19 09/03/19 22:59 06:59 14:59 Intake Total 1280 720 Output Total 600 620 650 Balance 680 100 -650 Lab Results - Last 24 hrs: Laboratory Results - last 24 hr 09/03/19 09/03/19 Range/Units 04:54 04:54 WBC 17.65 H (4.0-11.0) K/uL RBC 4.11 L (4.30-5.90) M/uL Hgb 12.2 (12.0-16.0) g/dL Hct 35.9 L (36.0-46.0) % MCV 87.3 (80.0-98.0) fL MCH 29.7 (27.0-32.0) pg MCHC 34.0 (31.0-37.0) g/dL RDW Std Deviation 44.7 (28.0-62.0) fl RDW Coeff of Munir 14 (11.0-15.0) % Plt Count 289 (150-400) K/uL MPV 9.60 (7.40-12.00) fL Add Manual Diff YES Neutrophils % (Manual) 90 H (48.0-80.0) % Band Neutrophils % 2 % Lymphocytes % (Manual) 8 L (16.0-40.0) % Monocytes % (Manual) 2 (0.0-15.0) % Nucleated RBC % 0.0 /100WBC Absolute Seg Neuts 15.9 H (1.4-5.7) Band Neutrophils # 0.4 Lymphocytes # (Manual) 1.4 (0.6-2.4) Monocytes # (Manual) 0.4 (0.0-0.8) Nucleated RBCs # 0 K/uL Sodium 136 (136-145) mmol/L Potassium 4.5 (3.5-5.1) mmol/L Chloride 104 (98-107) mmol/L Carbon Dioxide 19.7 L (21.0-32.0) mmol/L BUN 8 (7.0-18.0) mg/dL Creatinine 0.7 (0.6-1.0) mg/dL Est Cr Clr Drug Dosing 110.87 mL/min Estimated GFR (MDRD) > 60.0 ml/min Glucose 140 H (74-106) mg/dL Calcium 8.9 (8.5-10.1) mg/dL ANTONIO Results - Last 24 hrs: Microbiology 09/02/19 14:10 Influenza Type A Antigen Screen - Final Nasopharyngeal Swab NEGATIVE INFLUENZA A VIRUS AG REFERENCE RANGE: NEGATIVE Influenza Type B Antigen Screen - Final NEGATIVE INFLUENZA B VIRUS AG REFERENCE RANGE: NEGATIVE Med Orders - Current: Current Medications Acetaminophen (Tylenol) 650 mg PO Q4H PRN PRN Reason: Pain (mild 1-3) Last Admin: 09/03/19 13:09 Dose: 650 mg Albuterol/Ipratropium (Duoneb 3.0-0.5 Mg/3 Ml) 3 ml NEB QIDRT [facility] Last Admin: 09/03/19 10:53 Dose: 3 ml Albuterol/Ipratropium (Duoneb 3.0-0.5 Mg/3 Ml) 3 ml NEB Q2H PRN PRN Reason: wheezing/SOB Budesonide (Pulmicort) 0.5 mg NEB BIDRT [facility] Last Admin: 09/03/19 05:47 Dose: 0.5 mg Loratadine (Claritin) 10 mg PO DAILY [facility] Last Admin: 09/03/19 08:12 Dose: 10 mg Methylprednisolone Sodium Succinate (Solu-Medrol) 40 mg IVPUSH Q12H [facility] Ondansetron HCl (Zofran) 4 mg IVPUSH Q4H PRN PRN Reason: Nausea Sodium Chloride (Saline Flush) 10 ml FLUSH ASDIRECTED PRN PRN Reason: Keep Vein Open Sodium Chloride (Saline Flush) 2.5 ml FLUSH ASDIRECTED PRN PRN Reason: Keep Vein Open Discontinued Medications Albuterol/Ipratropium (Duoneb 3.0-0.5 Mg/3 Ml) 3 ml NEB ONETIME ONE Stop: 09/02/19 09:25 Last Admin: 09/02/19 09:33 Dose: 3 ml Albuterol/Ipratropium (Duoneb 3.0-0.5 Mg/3 Ml) Confirm Administered Dose 3 ml .ROUTE .STK-MED ONE Stop: 09/02/19 09:24 Last Admin: 09/02/19 09:33 Dose: 3 ml Albuterol/Ipratropium (Duoneb 3.0-0.5 Mg/3 Ml) 3 ml NEB ONETIME ONE Stop: 09/02/19 10:43 Last Admin: 09/02/19 13:09 Dose: Not Given Budesonide/Formoterol Fumarate (Symbicort 160-4.5 Mcg) 0 gm INH BID [facility] Last Admin: 09/03/19 13:31 Dose: Not Given Magnesium Sulfate 2 gm/ Premix 50 mls @ 50 mls/hr IV ONETIME ONE Stop: 09/02/19 10:20 Last Admin: 09/02/19 09:32 Dose: 50 mls/hr Methylprednisolone Sodium Succinate (Solu-Medrol) 125 mg IV ONETIME ONE Stop: 09/02/19 09:23 Last Admin: 09/02/19 09:34 Dose: Not Given Methylprednisolone Sodium Succinate (Solu-Medrol) 125 mg IVPUSH ONETIME ONE Stop: 09/02/19 09:27 Last Admin: 09/02/19 09:33 Dose: 125 mg Methylprednisolone Sodium Succinate (Solu-Medrol) 40 mg IVPUSH Q6H [facility] Last Admin: 09/03/19 08:35 Dose: 40 mg
[2019-09-03] MEDS ORDERED: methylPREDNISolone Sodium Succinate 40 MG/1 ML SDV IVPUSH SCH (21:00)
== END 2019-09-03 14:50 | disposition left against medical advice (07) | DRG 831 ==
LOC: MW.ED 09:13 → MW.ICU 12:15
PROVIDERS: ADMIT Internal Medicine; ATTEND Internal Medicine
PROC: 5A09357 Assistance with Respiratory Ventilation, Less than 24 Consecutive Hours, Continuous Positive Airway Pressure (ICD-10-PCS; principal; 2019-09-02)
DX: O99.512 Diseases of the respiratory system complicating pregnancy, second trimester (principal); J96.01 Acute respiratory failure with hypoxia; J45.901 Unspecified asthma with (acute) exacerbation; E66.9 Obesity, unspecified; O99.212 Obesity complicating pregnancy, second trimester; O99.612 Diseases of the digestive system complicating pregnancy, second trimester; K21.9 Gastro-esophageal reflux disease without esophagitis; Z3A.22 22 weeks gestation of pregnancy; Z88.6 Allergy status to analgesic agent; Z88.0 Allergy status to penicillin; Z88.5 Allergy status to narcotic agent; Z79.899 Other long term (current) drug therapy
CPT/HCPCS: 36415; 71045; 71045-26; 76815; 76815-26; 80048; 80053; 82803; 85025; 87804; 94640; 94660; 96365; 96375; 99284; 99285-25; A9270-GY; J2920; J2930; J3475; J7620-GY

== ENCOUNTER 2020-01-02 00:02 | Inpatient (IN) | payer OTHER ==
[2020-01-02] MEDS ORDERED: Sodium Chloride 0.9% 10 ML Syringe FLUSH PRN (04:40)
[2020-01-02] MEDS ORDERED: Sodium Chloride 0.9% 2.5 ML Syringe FLUSH PRN (04:40)
[2020-01-02] MEDS ORDERED: Citric Acid/Sodium Citrate Solution 30 ML Cup PO ONE (04:40)
[2020-01-02] MEDS ORDERED: Sodium Chloride 0.9% 10 ML SDV IV PRN (04:40)
[2020-01-02] MEDS ORDERED: Lactated Ringers 1,000 ML IV SCH ×2 (04:45→07:15)
[2020-01-02] MEDS ORDERED: Oxytocin/0.9 % Sodium Chloride 30 UNIT/500 ML BAG IV SCH (04:45)
[2020-01-02] MEDS ORDERED: Clindamycin Phosphate in D5W 600 MG in Premix Bag 1 BAG IV ONE ×2 (05:18)
[2020-01-02] MEDS ORDERED: Oxytocin 10 Units/1 ML SDV ONE (05:36)
[2020-01-02] MEDS ORDERED: Ondansetron 4 MG/2 ML SDV ONE (05:36)
[2020-01-02] MEDS ORDERED: Morphine PF 10 MG/10 ML SDV ONE (05:36)
--- NOTE | 2020-01-02 05:41 | PCM.LDHP ---
L&D History of Present Illness - General Date of Service: 01/02/20 Admit Problem/Dx: Patient Status Order with Admit Dx/Problem 01/02/20 04:40 Patient Status [ADT] Routine Admission Diagnosis/Problem Admission Diagnosis/Problem 01/02/20 05:36 Berny is a 34 yo at 39.3 weeks gestation (JOE 01/06/2020) for spontaneous onset of contractions. O pos, RI, GBS neg. Ax: penicillin, aspirin, singulair , toradol, azithromycin. 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 Patient was scheduled for a repeat section this am at 0800 and her operative consents were signed in the office 1 day ago. 01/02/20 05:40 Source of Information: Patient History Limitations: Reports: No Limitations - Related Data Allergies/Adverse Reactions: Allergies Allergy/AdvReac Type Severity Reaction Status Date / Time aspirin Allergy Anaphylactic Verified 12/27/19 09:31 Shock azithromycin [From Zithromax] Allergy Anaphylactic Verified 12/27/19 09:31 Shock ibuprofen [From Motrin] Allergy Anaphylactic Verified 12/27/19 09:31 Shock ketorolac [From Toradol] Allergy Anaphylactic Verified 12/27/19 09:31 Shock montelukast [From Singulair] Allergy Anaphylactic Verified 12/27/19 09:31 Shock Penicillins Allergy Anaphylactic Verified 12/27/19 09:31 Shock Home Medications: Home Meds Loratadine [Claritin] 10 mg PO DAILY 07/31/18 [History] Albuterol [Ventolin HFA] 1 puff INH Q4H PRN #1 inh 09/03/19 [Rx] Budesonide/Formoterol Fumarate [Symbicort 160-4.5 Mcg Inhaler] 1 puff IH BID #1 hfa.aer.ad 09/03/19 [Rx] Calcium Carbonate [Tums] 1 tab.chew CHEW ASDIRECTED PRN 12/27/19 [History] Pnv No.95/Ferrous Fum/Folic AC [ Vitamin Tablet] 1 tab PO DAILY [History] Past Medical History HEENT History: Reports: Allergic Rhinitis, Other (See Below) Other HEENT History: wears glasses, hyposmia Cardiovascular History: Reports: None Other Cardiovascular History: murmur with 2nd Respiratory History: Reports: Asthma Gastrointestinal History: Reports: Gastritis, GERD Other Gastrointestinal History: reflux relieved with baking soda and water, tums as needed Genitourinary History: Reports: None 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 , : 8 Para: 4 LMP (Approximate): Other OB/BYN History: 5 months post Musculoskeletal History: Reports: None Neurological History: Reports: Other (See Below) Psychiatric History: Reports: None Endocrine/Metabolic History: Reports: Obesity/BMI 30+ Hematologic History: Reports: None Immunologic History: Reports: None Oncologic (Cancer) History: Reports: None Dermatologic History: Reports: Eczema Other Dermatologic History: left axilla hidrandenitis supurativa - Infectious Disease History Infectious Disease History: Reports: Chicken Pox - Past Surgical History Other HEENT Surgeries/Procedures: removal of nasal polyp, sinus surgery Female Surgical History: Reports: Section (X4), Tubal Ligation, Other (See Below) Social & Family History - Family History Family Medical History: Noncontributory Cardiac: Reports: Cardiomyopathy, Heart Failure, Hypertension Respiratory: Reports: Asthma OBGYN: Reports: Neurological: Reports: Other (See Below) Other Neurological Family History: Epilepsy Endocrine/Metabolic: Reports: Diabetes, type II Oncologic: Reports: Breast, Colon, Lung - Tobacco Use Smoking Status *Q: Never Smoker - Caffeine Use Caffeine Use: Reports: None - Alcohol Use Alcohol Use History: No - Recreational Drug Use Drug Use in Last 12 Months: Yes Recreational Drug Type: Reports: Marijuana/Hashish Recreational Drug Use Frequency: Not Used In Over 6 Months - Sexual History Sexual History: Reports: Single Partner - Living Situation & Occupation Living situation: Reports: H&P Review of Systems - Review of Systems: Review Of Systems: Comprehensive ROS is negative, except as noted in HPI. General: Reports: No Symptoms HEENT: Reports: No Symptoms Pulmonary: Reports: No Symptoms Cardiovascular: Reports: No Symptoms Gastrointestinal: Reports: No Symptoms Genitourinary: Reports: No Symptoms Musculoskeletal: Reports: No Symptoms Skin: Reports: No Symptoms Psychiatric: Reports: No Symptoms Neurological: Reports: No Symptoms Hematologic/Lymphatic: Reports: No Symptoms Immunologic: Reports: No Symptoms L&D Exam - Exam Exam: See Below - Vital Signs Vital Signs: BP 112/68, HR 87, T 97.6. Hemodynamically stable, afebrile. Weight: 216 lb - OB Specific Fundal Height In cm: 39 Contraction Duration (sec): 4-10 Contraction Frequency (min): 90-120 Contraction Intensity: Moderate to Strong Movement: Active Heart Tones: Present Heart Tones per Min: 130 Heart Rate (FHR) Variability: Moderate (6-25 bmp) Presentation: Vertex - Tapia Score Tapia Score Cervix Position: Midposition Tapia Score Dilation: 3-4 cm - Exam General: Alert, Oriented HEENT: Conjunctiva Clear, EACs Clear, Hearing Intact, Mucosa Moist & [place], Nares Patent, PERRLA Neck: Supple, Trachea Midline Lungs: Clear to Auscultation, Normal Respiratory Effort Cardiovascular: Regular Rate, Regular Rhythm GI/Abdominal Exam: Normal Bowel Sounds, Soft, Non-Tender, No Organomegaly, No Distention, Other (Gravid uterus. Soft resting tone. Vertex via [place]. Membranes appear intact.) Rectal Exam: Deferred Genitourinary: Normal external exam, Normal bimanual exam Back Exam: Normal Inspection, Full Range of Motion Extremities: Normal Inspection, Normal Range of Motion, Non-Tender, No Pedal Edema, Normal Capillary Refill Skin: Warm, Dry, Intact Neurological: Cranial Nerves Intact, Reflexes Equal Bilateral Psychiatric: Alert, Normal Affect, Normal Mood - Problem List (1) Spontaneous onset of labor SNOMED Code(s): 64421318 ICD Code: [id number] - Status: Acute Priority: High Current Visit: Yes (2) 39 weeks gestation of SNOMED Code(s): 39194982 ICD Code: Z3A.39 - 39 WEEKS GESTATION OF Status: Acute Priority : High Current Visit: Yes Problem List Initiated/Reviewed/Updated: Yes Orders Last 24hrs: Active Orders 24 hr Category Date Time Status Patient Status [ADT] Routine ADT 01/02/20 04:40 Active Non Stress Test [RC] PER UNIT ROUTINE Care 01/02/20 04:40 Active Notify Provider Vital Signs [RC] PRN Care 01/02/20 09:00 Active Procedure Site Prep Instruct [RC] ASDIRECTED Care 01/02/20 04:40 Active Up ad Marissa [RC] ASDIRECTED Care 01/02/20 04:40 Active Verify Patient Consent Obtain [RC] ASDIRECTED Care 01/02/20 04:40 Active Vital Signs [RC] PER UNIT ROUTINE Care 01/02/20 04:40 Active CBC W/O DIFF,HEMOGRAM [HEME] Routine Lab 01/02/20 04:40 Ordered RPR (SYPHILIS SERO) W/ RFLX [REF] Routine Lab 01/02/20 04:40 Ordered TYPE AND SCREEN [BBK] Routine Lab 01/02/20 04:40 Ordered Clindamycin Phosphate in D5W [Cleocin in D5W] 600 mg Med 01/02/20 05:18 Active Premix Bag 1 bag IV ONETIME Lactated Ringers [Ringers, Lactated] 1,000 ml Med 01/02/20 04:45 Active IV BOLUS Oxytocin/0.9 % Sodium Chloride [Oxytocin 30 Unit/500 ML Med 01/02/20 04:45 Active -NS] 30 unit in 500 ml IV TITRATE Sodium Chloride 0.9% [Normal Saline] Med 01/02/20 04:40 Active 10 ml IV ASDIRECTED PRN Sodium Chloride 0.9% [Saline Flush] Med 01/02/20 04:40 Active 10 ml FLUSH ASDIRECTED PRN Sodium Chloride 0.9% [Saline Flush] Med 01/02/20 04:40 Active 2.5 ml FLUSH ASDIRECTED PRN Peripheral IV Insertion Adult [OM.PC] Routine Oth 01/02/20 04:40 Ordered Schedule Procedure [COMM] Per Unit Routine Oth 01/02/20 04:40 Ordered Resuscitation Status Routine Resus Stat 01/02/20 04:40 Ordered Medication Orders Lactated Ringer's (Ringers, Lactated) 1,000 mls @ 500 mls/hr IV BOLUS [facility] Last Admin: 01/02/20 05:25 Dose: 500 mls/hr Oxytocin/Sodium Chloride (Oxytocin 30 Unit/500 Ml-Ns) 30 unit in 500 mls @ 250 mls/hr IV TITRATE [facility] Clindamycin Phosphate 600 mg/ (Premix) 50 mls @ 100 mls/hr IV ONETIME ONE Stop: 01/02/20 05:47 Sodium Chloride (Saline Flush) 10 ml FLUSH ASDIRECTED PRN PRN Reason: Keep Vein Open Sodium Chloride (Saline Flush) 2.5 ml FLUSH ASDIRECTED PRN PRN Reason: Keep Vein Open Sodium Chloride (Normal Saline) 10 ml IV ASDIRECTED PRN PRN Reason: IV Use Assessment/Plan Comment:: Berny is a 34 yo at 39.3 weeks gestation (JOE 01/06/2020) for spontaneous onset of contractions. O pos, RI, GBS neg. Ax: penicillin, aspirin, singulair , toradol, azithromycin. 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 Patient was scheduled for a repeat section this am at 0800 and her operative consents were signed in the office 1 day ago. Plan repeat CS now, consents signed. Patient being prepped for OR. OR team en route. See new orders.
[2020-01-02] MEDS ORDERED: Clindamycin Phosphate in D5W 50 ML IV ONE (05:58)
[2020-01-02] MEDS ORDERED: Clindamycin Phosphate in D5W 0 ML ONE (06:00)
[2020-01-02] MEDS ORDERED: Octyl 2-Cyanoacrylate 1 Tube ONE (06:09)
--- NOTE | 2020-01-02 06:45 | PCM.PREANE ---
Preanesthetic Assessment - Anesthesia/Transfusion/Family Hx Anesthesia History: Prior Anesthesia Without Reaction (Has had general anesthesia without problems. Had an epidural fail with first csection) Family History of Anesthesia Reaction: No Transfusion History: No Prior Transfusion(s) Intubation History: Intubation other than for Surgery in past (intubated for asthma twice) - Review of Systems General: No Symptoms Pulmonary: Other (asthma) Cardiovascular: No Symptoms Gastrointestinal: No Symptoms Neurological: No Symptoms Other: Reports: None - Physical Assessment NPO Status Date: 01/02/20 NPO Status Time: 00:01 Height: 5 ft 7 in Weight: 97.976 kg ASA Class: 2E Mental Status: Alert & Oriented x3 Airway Class: Mallampati = 1 Dentition: Reports: Normal Dentition Thyro-Mental Finger Breadths: 3 ROM/Head Extension: Full Lungs: Clear to Auscultation, Normal Respiratory Effort Cardiovascular: Regular Rate, Regular Rhythm - Lab Values: Laboratory Last Values WBC 9.86 K/uL (4.0-11.0) 01/02/20 05:35 RBC 4.03 M/uL (4.30-5.90) L 01/02/20 05:35 Hgb 11.7 g/dL (12.0-16.0) L 01/02/20 05:35 Hct 36.3 % (36.0-46.0) 01/02/20 05:35 MCV 90.1 fL (80.0-98.0) 01/02/20 05:35 MCH 29.0 pg (27.0-32.0) 01/02/20 05:35 MCHC 32.2 g/dL (31.0-37.0) 01/02/20 05:35 RDW Std Deviation 45.0 fl (28.0-62.0) 01/02/20 05:35 RDW Coeff of Munir 14 % (11.0-15.0) 01/02/20 05:35 Plt Count 219 K/uL (150-400) 01/02/20 05:35 MPV 9.80 fL (7.40-12.00) 01/02/20 05:35 Nucleated RBC % 0.0 /100WBC 01/02/20 05:35 Nucleated RBCs # 0 K/uL 01/02/20 05:35 Blood Type O POSITIVE 01/02/20 05:35 Antibody Screen NEGATIVE 01/02/20 05:35 - Allergies Allergies/Adverse Reactions: Allergies Allergy/AdvReac Type Severity Reaction Status Date / Time aspirin Allergy Anaphylactic Verified 12/27/19 09:31 Shock azithromycin [From Zithromax] Allergy Anaphylactic Verified 12/27/19 09:31 Shock ibuprofen [From Motrin] Allergy Anaphylactic Verified 12/27/19 09:31 Shock ketorolac [From Toradol] Allergy Anaphylactic Verified 12/27/19 09:31 Shock montelukast [From Singulair] Allergy Anaphylactic Verified 12/27/19 09:31 Shock Penicillins Allergy Anaphylactic Verified 12/27/19 09:31 Shock - Acknowledgements Anesthesia Type Planned: Spinal Pt an Appropriate Candidate for the Planned Anesthesia: Yes Alternatives and Risks of Anesthesia Discussed w Pt/Guardian: Yes Pt/Guardian Understands and Agrees with Anesthesia Plan: Yes Additional Comments: comes in nahid PreAnesthesia Questionnaire HEENT History: Reports: Allergic Rhinitis, Other (See Below) Other HEENT History: wears glasses, hyposmia Cardiovascular History: Reports: None Other Cardiovascular History: murmur with 2nd Respiratory History: Reports: Asthma Gastrointestinal History: Reports: Gastritis, GERD Other Gastrointestinal History: reflux relieved with baking soda and water, tums as needed Genitourinary History: Reports: None 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 , 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 OB/BYN History: 5 months post Musculoskeletal History: Reports: None Neurological History: Reports: Other (See Below) Psychiatric History: Reports: None Endocrine/Metabolic History: Reports: Obesity/BMI 30+ Hematologic History: Reports: None Immunologic History: Reports: None Oncologic (Cancer) History: Reports: None Dermatologic History: Reports: Eczema Other Dermatologic History: left axilla hidrandenitis supurativa - Infectious Disease History Infectious Disease History: Reports: Chicken Pox - Past Surgical History Other HEENT Surgeries/Procedures: removal of nasal polyp, sinus surgery Female Surgical History: Reports: Section (X4), Tubal Ligation, Other (See Below) - SUBSTANCE USE Smoking Status *Q: Never Smoker Recreational Drug Type: Reports: Marijuana/Hashish - HOME MEDS Home Medications: Home Meds Loratadine [Claritin] 10 mg PO DAILY 07/31/18 [History] Albuterol [Ventolin HFA] 1 puff INH Q4H PRN #1 inh 09/03/19 [Rx] Budesonide/Formoterol Fumarate [Symbicort 160-4.5 Mcg Inhaler] 1 puff IH BID #1 hfa.aer.ad 09/03/19 [Rx] Calcium Carbonate [Tums] 1 tab.chew CHEW ASDIRECTED PRN 12/27/19 [History] Pnv No.95/Ferrous Fum/Folic AC [ Vitamin Tablet] 1 tab PO DAILY [History] - CURRENT (IN HOUSE) MEDS Current Meds: Current Medications Lactated Ringer's (Ringers, Lactated) 1,000 mls @ 500 mls/hr IV BOLUS [facility] Last Admin: 01/02/20 05:25 Dose: 500 mls/hr Oxytocin/Sodium Chloride (Oxytocin 30 Unit/500 Ml-Ns) 30 unit in 500 mls @ 250 mls/hr IV TITRATE [facility] Sodium Chloride (Saline Flush) 10 ml FLUSH ASDIRECTED PRN PRN Reason: Keep Vein Open Sodium Chloride (Saline Flush) 2.5 ml FLUSH ASDIRECTED PRN PRN Reason: Keep Vein Open Sodium Chloride (Normal Saline) 10 ml IV ASDIRECTED PRN PRN Reason: IV Use Discontinued Medications Citric Acid/Sodium Citrate (Bicitra Solution) 30 ml PO ONETIME ONE Stop: 01/02/20 04:41 Clindamycin Phosphate 600 mg/ (Premix) 50 mls @ 100 mls/hr IV ONETIME ONE Stop: 01/02/20 05:47 Clindamycin Phosphate (Cleocin In D5w) Confirm Administered Dose 50 mls @ as directed IV .STK-MED ONE Stop: 01/02/20 05:59 Clindamycin Phosphate (Cleocin In D5w) Confirm Administered Dose 50 mls @ as directed .ROUTE .STK-MED ONE Stop: 01/02/20 06:01 Morphine Sulfate (Duramorph Pf) Confirm Administered Dose 10 mg .ROUTE .STK-MED ONE Stop: 01/02/20 05:37 Octyl Cyanoacrylate (Dermabond Advance) Confirm Administered Dose 2 applic .ROUTE .STK-MED ONE Stop: 01/02/20 06:10 Ondansetron HCl (Zofran) Confirm Administered Dose 4 mg .ROUTE .STK-MED ONE Stop: 01/02/20 05:37 Oxytocin (Pitocin) Confirm Administered Dose 20 unit .ROUTE .[facility] ONE Stop: 01/02/20 05:37
[2020-01-02] MEDS ORDERED: Naloxone 0.4 MG/ML Syringe IVPUSH PRN (06:57)
[2020-01-02] MEDS ORDERED: Acetaminophen/oxyCODONE 325-5 MG Tab PO PRN ×2 (06:57→07:04)
[2020-01-02] MEDS ORDERED: Ondansetron 4 MG/2 ML SDV IVPUSH PRN ×2 (06:57→07:04)
[2020-01-02] MEDS ORDERED: diphenhydrAMINE 50 MG/ML SDV IVPUSH PRN ×2 (06:57→07:04)
[2020-01-02] MEDS ORDERED: Nalbuphine 10 MG/1 ML Vial IVPUSH PRN (06:57)
[2020-01-02] MEDS ORDERED: Tranexamic Acid 1,000 MG in Sodium Chloride 0.9% 100 ML IV PRN (07:04)
[2020-01-02] MEDS ORDERED: Ibuprofen 800 MG Tab PO PRN (07:04)
[2020-01-02] MEDS ORDERED: Bisacodyl 10 MG Supp RECTAL PRN (07:04)
[2020-01-02] MEDS ORDERED: Misoprostol 200 MCG Tab RECTAL PRN (07:04)
[2020-01-02] MEDS ORDERED: Lanolin 100% Cream 7 GM Tube TOP PRN (07:04)
[2020-01-02] MEDS ORDERED: Oxytocin 10 Units/1 ML SDV IM PRN (07:04)
[2020-01-02] MEDS ORDERED: Methylergonovine 0.2 MG/1 ML Amp IM PRN (07:04)
--- NOTE | 2020-01-02 07:09 | PCM.OPNOTE ---
- General Post-Op/Procedure Note Date of Surgery/Procedure: 01/02/20 Operative Procedure(s): Repeat C/section. Pre Op Diagnosis: IUP 39+3 previous C/sectiom Multiple Post-Op Diagnosis: Same Anesthesia Technique: Spinal Primary Surgeon: Dharmesh Thompson Director Of Physical Education: Janet Zarate EBL in mLs: 700 Complications: None Condition: Good
[2020-01-02] MEDS ORDERED: Sodium Chloride 0.9% 20 ML ONE (07:10)
[2020-01-02] MEDS ORDERED: ePHEDrine 50 MG/ML SDV ONE (07:10)
[2020-01-02] MEDS ORDERED: Ketorolac 30 MG/ML SDV IVPUSH SCH (07:15)
[2020-01-02] MEDS ORDERED: fentaNYL 100 MCG/2 ML SDV ONE (08:16)
[2020-01-02] MEDS: fentaNYL 100 MCG/2 ML SDV IVPUSH PRN ×2 (08:18→10:17)
--- NOTE | 2020-01-02 08:29 | PCM.POSTAN ---
POST ANESTHESIA ASSESSMENT - MENTAL STATUS Mental Status: Alert, Oriented - RESPIRATORY Respiratory Status: Respiratory Rate WNL, Airway Patent, O2 Saturation Stable - CARDIOVASCULAR CV Status: Pulse Rate WNL, Blood Pressure Stable - GASTROINTESTINAL GI Status: No Symptoms - PAIN Pain Score: 7 Free Text/Narrative:: sensation coming back to abdomen - POST OP HYDRATION Hydration Status: Adequate & Stable
[2020-01-02] MEDS: Docusate Sodium 100 MG Cap PO SCH ×2 (10:02→21:25)
--- NOTE | 2020-01-02 19:50 | OR ---
SURGEON: Dharmesh Thompson MD DATE OF PROCEDURE: 01/02/2020 PREOPERATIVE DIAGNOSIS: Intrauterine , 39+ week; multiple sections before. POSTOPERATIVE DIAGNOSIS: Intrauterine , 39+ week; multiple sections before. OPERATION PERFORMED: Repeat low transverse section. MAT PUNCHER: Janet Zarate, certified nurse duct layer supervisor. ANESTHESIA: Spinal, Priscila Farah and Dr. Da Silva. ESTIMATED BLOOD LOSS: 700 mL. COMPLICATIONS: None. INDICATIONS FOR SURGERY: This patient is 34. She has had multiple sections before. She is followed in our clinic. She is supposed to have elective repeat section this morning; however, the patient presented earlier, about 2 to 3 hours prior of the time of her section, having contraction and so we went ahead repeated her section early. PROCEDURE IN DETAIL: The patient was brought to the OR, properly identified. After adequate level of spinal anesthesia with a Fraser catheter in the bladder, the patient was prepped and draped in a sterile fashion as usual. Low transverse Pfannenstiel skin incision was done. Marely fascia and rectus fascia were opened in the direction of the incision. The 2 recti muscles were , peritoneal cavity was entered. Bladder flap was raised in the usual manner, pushing the bladder away from the lower uterine segment. Low transverse uterine incision was done. The fetus was in vertex position, delivered without any problem, cried immediately, handed to the machine sign writer, Dr. Madden, who was present at the time of delivery. Later on the scores were reported to be 8 and 9. The weight is not available. The placenta was delivered spontaneous, complete, and intact. Repair of the lower uterine segment was started with 2-0 Vicryl continuous interlocking in 2 layers. Reperitonealization done with 3-0 Vicryl continuous and then the peritoneal cavity was evacuated completely from all blood and blood clot and closed with 3-0 Vicryl continuous. The rectus fascia was closed with #1 PDS continuous. The Marely's fascia was closed with 3-0 Vicryl continuous and the skin closed with 3-0 on a Bryan needle in a subcuticular fashion and Dermabond. Instrument and sponge count was correct. The patient tolerated the procedure well, went to recovery in stable general condition. ALYX / MODL /[id number]
[2020-01-02] MEDS ORDERED: oxyCODONE 5 MG Tab PO ONE (20:24)
[2020-01-02] MEDS ORDERED: Acetaminophen 1,000 MG in Premix Bag 1 BAG IV ONE (20:24)
--- NOTE | 2020-01-02 20:40 | PCM.SN.2 ---
- Free Text/Narrative Note: Called for noticable discomfort above umbilicus. Crampy ache. Given fentanyl with minimal relief. Allergic to Toradol. Discussed with patient. Will give Ofirmev 1gm. If discomfort bothersome post, oxycodone 5mg available, as well as fentanyl 2 doses. Doing well otherwise.
[2020-01-03] MEDS: Acetaminophen/oxyCODONE 325-5 MG Tab PO PRN ×4 (05:27→20:45)
--- NOTE | 2020-01-03 08:23 | PCM.PNPP ---
- General Info Date of Service: 01/03/20 Admission Dx/Problem (Free Text): Patient Status Order with Admit Dx/Problem 01/02/20 04:40 Patient Status [ADT] Routine Admission Diagnosis/Problem Admission Diagnosis/Problem 01/02/20 05:36 Berny is a 34 yo at 39.3 weeks gestation (JOE 01/06/2020) for spontaneous onset of contractions. O pos, RI, GBS neg. Ax: penicillin, aspirin, singulair , toradol, azithromycin. 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 Patient was scheduled for a repeat section this am at 0800 and her operative consents were signed in the office 1 day ago. 01/02/20 05:40 Functional Status: Reports: Pain Controlled, Tolerating Diet, Ambulating, Urinating - Review of Systems General: Reports: No Symptoms HEENT: Reports: No Symptoms Pulmonary: Reports: No Symptoms Cardiovascular: Reports: No Symptoms Gastrointestinal: Reports: No Symptoms Genitourinary: Reports: No Symptoms Musculoskeletal: Reports: No Symptoms Skin: Reports: No Symptoms Neurological: Reports: No Symptoms Psychiatric: Reports: No Symptoms - General Info Date of Service: 01/03/20 - Patient Data Vital Signs - Most Recent: Last Vital Signs Temp 98.1 F 01/03/20 04:00 Pulse 103 H 01/03/20 06:00 Resp 17 01/03/20 06:00 BP 118/75 01/03/20 04:00 Pulse Ox 98 01/03/20 06:00 Weight - Most Recent: 216 lb I&O - Last 24 Hours: Intake & Output 01/02/20 01/03/20 01/03/20 22:59 06:59 14:59 Intake Total 900 Output Total 2400 3200 Balance -2400 -2300 Lab Results - Last 24 Hours: Laboratory Results - last 24 hr 01/03/20 Range/Units 05:58 Hgb 12.2 (12.0-16.0) g/dL Hct 38.6 (36.0-46.0) % Med Orders - Current: Current Medications Bisacodyl (Dulcolax) 10 mg RECTAL ONETIME PRN PRN Reason: Constipation Diphenhydramine HCl (Benadryl) 25 mg IVPUSH Q6H PRN PRN Reason: Itching or Nausea Docusate Sodium (Colace) 100 mg PO BID [facility] Last Admin: 01/02/20 21:25 Dose: 100 mg Emollient Ointment (Lansinoh Hpa) 0 gm TOP ASDIRECTED PRN PRN Reason: Sore Nipples Fentanyl (Sublimaze) 50 mcg IVPUSH Q1H PRN PRN Reason: Pain (severe 7-10) Last Admin: 01/02/20 10:17 Dose: 50 mcg Lactated Ringer's (Ringers, Lactated) 1,000 mls @ 500 mls/hr IV BOLUS [facility] Last Admin: 01/02/20 05:25 Dose: 500 mls/hr Oxytocin/Sodium Chloride (Oxytocin 30 Unit/500 Ml-Ns) 30 unit in 500 mls @ 250 mls/hr IV TITRATE [facility] Tranexamic Acid 1,000 mg/ (Sodium Chloride) 110 mls @ 660 mls/hr IV ONETIME PRN PRN Reason: Bleeding Lactated Ringer's (Ringers, Lactated) 1,000 mls @ 125 mls/hr IV ASDIRECTED [facility] Ibuprofen (Motrin) 800 mg PO Q8H PRN PRN Reason: mild pain or fever Ketorolac Tromethamine (Toradol) 30 mg IVPUSH Q6H [facility] Stop: 01/03/20 07:16 Methylergonovine Maleate (Methergine) 0.2 mg IM ONETIME PRN PRN Reason: Excessive Vaginal Bleeding Misoprostol (Cytotec) 1,000 mcg RECTAL ONETIME PRN PRN Reason: excessive bleeding Nalbuphine HCl (Nubain) 5 mg IVPUSH ASDIRECTED PRN PRN Reason: Itching Last Admin: 01/02/20 17:40 Dose: 5 mg Ondansetron HCl (Zofran) 4 mg IVPUSH Q4H PRN PRN Reason: Nausea/Vomiting Oxycodone/Acetaminophen (Percocet 325-5 Mg) 1 tab PO Q4H PRN PRN Reason: Pain (moderate 4-6) Oxycodone/Acetaminophen (Percocet 325-5 Mg) 2 tab PO Q4H PRN PRN Reason: Pain (moderate 4-6) Last Admin: 01/03/20 05:27 Dose: 2 tab Oxytocin (Pitocin) 10 unit IM ASDIRECTED PRN PRN Reason: Excessive Vaginal Bleeding Sodium Chloride (Saline Flush) 10 ml FLUSH ASDIRECTED PRN PRN Reason: Keep Vein Open Sodium Chloride (Saline Flush) 2.5 ml FLUSH ASDIRECTED PRN PRN Reason: Keep Vein Open Sodium Chloride (Normal Saline) 10 ml IV ASDIRECTED PRN PRN Reason: IV Use Discontinued Medications Citric Acid/Sodium Citrate (Bicitra Solution) 30 ml PO ONETIME ONE Stop: 01/02/20 04:41 Last Admin: 01/02/20 10:02 Dose: Not Given Diphenhydramine HCl (Benadryl) 25 mg IVPUSH Q4H PRN PRN Reason: Itching Stop: 01/03/20 06:57 Ephedrine Sulfate (Ephedrine Sulfate) Confirm Administered Dose 50 mg .ROUTE .STK-MED ONE Stop: 01/02/20 07:11 Fentanyl (Sublimaze) Confirm Administered Dose 100 mcg .ROUTE .STK-MED ONE Stop: 01/02/20 08:17 Clindamycin Phosphate 600 mg/ (Premix) 50 mls @ 100 mls/hr IV ONETIME ONE Stop: 01/02/20 05:47 Last Admin: 01/02/20 10:02 Dose: Not Given Clindamycin Phosphate (Cleocin In D5w) Confirm Administered Dose 50 mls @ as directed IV .STK-MED ONE Stop: 01/02/20 05:59 Last Admin: 01/02/20 10:02 Dose: Not Given Clindamycin Phosphate (Cleocin In D5w) Confirm Administered Dose 50 mls @ as directed .ROUTE .STK-MED ONE Stop: 01/02/20 06:01 Last Admin: 01/02/20 10:02 Dose: Not Given Sodium Chloride (Normal Saline) Confirm Administered Dose 20 mls @ as directed .ROUTE .STK-MED ONE Stop: 01/02/20 07:11 Acetaminophen 1,000 mg/ Premix 100 mls @ 400 mls/hr IV NOW ONE Stop: 01/02/20 20:38 Last Admin: 01/02/20 21:07 Dose: 400 mls/hr Acetaminophen (Ofirmev) Confirm Administered Dose 100 mls @ as directed .ROUTE .STK-MED ONE Stop: 01/02/20 21:00 Morphine Sulfate (Duramorph Pf) Confirm Administered Dose 10 mg .ROUTE .STK-MED ONE Stop: 01/02/20 05:37 Naloxone HCl (Narcan) 0.1 mg IVPUSH ONETIME PRN PRN Reason: Respiratory Depression Stop: 01/03/20 06:57 Octyl Cyanoacrylate (Dermabond Advance) Confirm Administered Dose 2 applic .ROUTE .STK-MED ONE Stop: 01/02/20 06:10 Last Admin: 01/02/20 10:02 Dose: Not Given Ondansetron HCl (Zofran) Confirm Administered Dose 4 mg .ROUTE .STK-MED ONE Stop: 01/02/20 05:37 Ondansetron HCl (Zofran) 4 mg IVPUSH Q6H PRN PRN Reason: Nausea Oxycodone HCl (Oxycodone) 5 mg PO ONETIME ONE Stop: 01/02/20 20:25 Last Admin: 01/02/20 23:00 Dose: Not Given Oxycodone/Acetaminophen (Percocet 325-5 Mg) 2 tab PO Q6H PRN PRN Reason: Pain (moderate 4-6) Oxytocin (Pitocin) Confirm Administered Dose 20 unit .ROUTE .STK-MED ONE Stop: 01/02/20 05:37 - Interaction Disposition, : to Nursery Interaction: Not Applicable Infant Feeding: Bottle Fed Support Person: - Recovery Exam Fundal Tone: Firm Fundal Level: At Umbilicus Fundal Placement: Midline Lochia Amount: Scant Lochia Color: Rubra/Red Perineum Description: Intact, Minimal Bruising/Swelling Episiotomy/Laceration: None Bladder Status: Indwelling Catheter in Place Urinary Elimination: Indwelling Catheter - Exam General: Alert, Oriented, Cooperative, No Acute Distress Lungs: Clear to Auscultation, Normal Respiratory Effort Cardiovascular: Regular Rate, Regular Rhythm GI/Abdominal Exam: Soft, Non-Tender Extremities: Normal Inspection, Normal Range of Motion, Non-Tender, Normal Capillary Refill Skin: Warm, Dry, Intact Wound/Incisions: Dressing Dry and Intact Neurological: No New Focal Deficit, Normal Gait, Normal Speech, Normal Tone, Sensation Intact Psy/Mental Status: Alert, Normal Affect, Normal Mood - Problem List & Annotations (1) delivery, delivered, current hospitalization SNOMED Code(s): 052637983 Code(s): O82 - ENCOUNTER FOR DELIVERY WITHOUT INDICATION Status: Acute Priority: High Current Visit: Yes - Problem List Review Problem List Initiated/Reviewed/Updated: Yes - Plan Plan:: Berny is a 34 yo at 39.3 weeks gestation (JOE 01/06/2020) for spontaneous onset of contractions. O pos, RI, GBS neg. Ax: penicillin, aspirin, singulair , toradol, azithromycin. 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 Patient was scheduled for a repeat section this am at 0800 and her operative consents were signed in the office 1 day ago. Plan repeat CS now, consents signed. Patient being prepped for OR. OR team en route. See new orders. PP Day 1 A: Doing well; dressing dry and intact; ambulating, urinating, tolerating diet. Bottle fed infant. P: Routine plan of care; Dr. Thompson updated
--- NOTE | 2020-01-03 08:30 | PCM48HPAN ---
Post Anesthesia Note - EVALUATION WITHIN 48HRS OF ANESTHETIC Vital Signs in Normal Range: Yes Patient Participated in Evaluation: Yes Respiratory Function Stable: Yes Airway Patent: Yes Cardiovascular Function Stable: Yes Hydration Status Stable: Yes Pain Control Satisfactory: Yes Nausea and Vomiting Control Satisfactory: Yes Mental Status Recovered: Yes Vital Signs: Last Vital Signs Temp 36.1 C 01/03/20 08:00 Pulse 90 01/03/20 08:00 Resp 18 01/03/20 08:00 BP 122/76 01/03/20 08:00 Pulse Ox 95 01/03/20 08:00 - COMMENTS/OBSERVATIONS Free Text/Narrative:: Doing well. Excellent relief from tylenol. No problems noted.
[2020-01-03] MEDS: Docusate Sodium 100 MG Cap PO SCH ×2 (09:41→20:46)
--- NOTE | 2020-01-03 16:59 | PCM.DCSUM1 ---
Discharge Summary - Hospital Course Free Text/Narrative:: Discharge home. Follow up in the clinic in one week for incision check. Follow up in the clinic in six weeks for routine visit. Diagnosis: Stroke: No Modified Pat[place] Scale: No Symptoms at All Modified [place] Scale Score: 0 - Discharge Data Discharge Date: 01/03/20 Discharge Disposition: Home, Self-Care 01 Condition: Good - Referral to Home Health Primary Care Physician: PCP None - Discharge Diagnosis/Problem(s) (1) delivery, delivered, current hospitalization SNOMED Code(s): 567659045 ICD Code: O82 - ENCOUNTER FOR DELIVERY WITHOUT INDICATION Status: Acute Priority: High Current Visit: Yes - Patient Summary/Data Operative Procedure(s) Performed: Repeat C/section. - Patient Instructions Diet: Regular Diet as Tolerated, Drink 8-10+ Glasses/Day Activity: As Tolerated, No Strenuous Activities, Rest and Relax Today Driving: Do Not Drive Showering/Bathing: May Shower Wound/Incision Care: Keep Operative Site/Wound Site Clean and Dry, Do NOT Change Dressing Notify Provider of: Fever, Increased Pain, Swelling and Redness, Drainage, Nausea and/or Vomiting - Discharge Plan *PRESCRIPTION DRUG MONITORING PROGRAM REVIEWED*: Not Applicable *COPY OF PRESCRIPTION DRUG MONITORING REPORT IN PATIENT MELISSA: Not Applicable Prescriptions/Med Rec: Acetaminophen/oxyCODONE [Percocet 325-5 MG] 1 tab PO Q6H PRN #30 tablet PRN Reason: Pain (Moderate 4-6) Home Medications: Home Meds Loratadine [Claritin] 10 mg PO DAILY 07/31/18 [History] Albuterol [Ventolin HFA] 1 puff INH Q4H PRN #1 inh 09/03/19 [Rx] Budesonide/Formoterol Fumarate [Symbicort 160-4.5 Mcg Inhaler] 1 puff IH BID #1 hfa.aer.ad 09/03/19 [Rx] Calcium Carbonate [Tums] 1 tab.chew CHEW ASDIRECTED PRN 12/27/19 [History] Pnv No.95/Ferrous Fum/Folic AC [ Vitamin Tablet] 1 tab PO DAILY [History] Acetaminophen/oxyCODONE [Percocet 325-5 MG] 1 tab PO Q6H PRN #30 tablet [Rx] Oxygen Therapy Mode: Room Air Referrals: [facility] [Outside] Dharmesh Thompson MD [Physician] - 01/08/20 3:00 pm Joyce Robles CNM [Mid-] - 02/13/20 1:30 pm - Discharge Summary/Plan Comment DC Time >30 min.: Yes - General Info Date of Service: 01/03/20 Admission Dx/Problem (Free Text: Patient Status Order with Admit Dx/Problem 01/02/20 04:40 Patient Status [ADT] Routine Admission Diagnosis/Problem Admission Diagnosis/Problem 01/02/20 05:36 Berny is a 34 yo at 39.3 weeks gestation (JOE 01/06/2020) for spontaneous onset of contractions. O pos, RI, GBS neg. Ax: penicillin, aspirin, singulair , toradol, azithromycin. 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 Patient was scheduled for a repeat section this am at 0800 and her operative consents were signed in the office 1 day ago. 01/02/20 05:40 Functional Status: Reports: Pain Controlled, Tolerating Diet, Ambulating, Urinating - Review of Systems General: Reports: No Symptoms HEENT: Reports: No Symptoms Pulmonary: Reports: No Symptoms Cardiovascular: Reports: No Symptoms Gastrointestinal: Reports: No Symptoms Genitourinary: Reports: No Symptoms Musculoskeletal: Reports: No Symptoms Skin: Reports: No Symptoms Neurological: Reports: No Symptoms Psychiatric: Reports: No Symptoms - Patient Data Vitals - Most Recent: Last Vital Signs Temp 97.8 F 01/03/20 12:00 Pulse 96 01/03/20 12:00 Resp 18 01/03/20 12:00 BP 126/85 01/03/20 12:00 Pulse Ox 96 01/03/20 12:00 Weight - Most Recent: 216 lb I&O - Last 24 hours: Intake & Output 01/03/20 01/03/20 01/03/20 06:59 14:59 22:59 Intake Total 900 Output Total 3200 Balance -2300 Lab Results - Last 24 hrs: Laboratory Results - last 24 hr 01/02/20 01/03/20 Range/Units 05:35 05:58 Hgb 12.2 (12.0-16.0) g/dL Hct 38.6 (36.0-46.0) % RPR Non-Reac (Non-Reac) Med Orders - Current: Current Medications Bisacodyl (Dulcolax) 10 mg RECTAL ONETIME PRN PRN Reason: Constipation Diphenhydramine HCl (Benadryl) 25 mg IVPUSH Q6H PRN PRN Reason: Itching or Nausea Docusate Sodium (Colace) 100 mg PO BID [facility] Last Admin: 01/03/20 09:41 Dose: 100 mg Emollient Ointment (Lansinoh Hpa) 0 gm TOP ASDIRECTED PRN PRN Reason: Sore Nipples Fentanyl (Sublimaze) 50 mcg IVPUSH Q1H PRN PRN Reason: Pain (severe 7-10) Last Admin: 01/02/20 10:17 Dose: 50 mcg Lactated Ringer's (Ringers, Lactated) 1,000 mls @ 500 mls/hr IV BOLUS [facility] Last Admin: 01/02/20 05:25 Dose: 500 mls/hr Oxytocin/Sodium Chloride (Oxytocin 30 Unit/500 Ml-Ns) 30 unit in 500 mls @ 250 mls/hr IV TITRATE [facility] Tranexamic Acid 1,000 mg/ (Sodium Chloride) 110 mls @ 660 mls/hr IV ONETIME PRN PRN Reason: Bleeding Lactated Ringer's (Ringers, Lactated) 1,000 mls @ 125 mls/hr IV ASDIRECTED [facility] Ibuprofen (Motrin) 800 mg PO Q8H PRN PRN Reason: mild pain or fever Ketorolac Tromethamine (Toradol) 30 mg IVPUSH Q6H [facility] Stop: 01/03/20 07:16 Methylergonovine Maleate (Methergine) 0.2 mg IM ONETIME PRN PRN Reason: Excessive Vaginal Bleeding Misoprostol (Cytotec) 1,000 mcg RECTAL ONETIME PRN PRN Reason: excessive bleeding Nalbuphine HCl (Nubain) 5 mg IVPUSH ASDIRECTED PRN PRN Reason: Itching Last Admin: 01/02/20 17:40 Dose: 5 mg Ondansetron HCl (Zofran) 4 mg IVPUSH Q4H PRN PRN Reason: Nausea/Vomiting Oxycodone/Acetaminophen (Percocet 325-5 Mg) 1 tab PO Q4H PRN PRN Reason: Pain (moderate 4-6) Oxycodone/Acetaminophen (Percocet 325-5 Mg) 2 tab PO Q4H PRN PRN Reason: Pain (moderate 4-6) Last Admin: 01/03/20 14:30 Dose: 2 tab Oxytocin (Pitocin) 10 unit IM ASDIRECTED PRN PRN Reason: Excessive Vaginal Bleeding Sodium Chloride (Saline Flush) 10 ml FLUSH ASDIRECTED PRN PRN Reason: Keep Vein Open Sodium Chloride (Saline Flush) 2.5 ml FLUSH ASDIRECTED PRN PRN Reason: Keep Vein Open Sodium Chloride (Normal Saline) 10 ml IV ASDIRECTED PRN PRN Reason: IV Use Discontinued Medications Citric Acid/Sodium Citrate (Bicitra Solution) 30 ml PO ONETIME ONE Stop: 01/02/20 04:41 Last Admin: 01/02/20 10:02 Dose: Not Given Diphenhydramine HCl (Benadryl) 25 mg IVPUSH Q4H PRN PRN Reason: Itching Stop: 01/03/20 06:57 Ephedrine Sulfate (Ephedrine Sulfate) Confirm Administered Dose 50 mg .ROUTE .STK-MED ONE Stop: 01/02/20 07:11 Fentanyl (Sublimaze) Confirm Administered Dose 100 mcg .ROUTE .STK-MED ONE Stop: 01/02/20 08:17 Clindamycin Phosphate 600 mg/ (Premix) 50 mls @ 100 mls/hr IV ONETIME ONE Stop: 01/02/20 05:47 Last Admin: 01/02/20 10:02 Dose: Not Given Clindamycin Phosphate (Cleocin In D5w) Confirm Administered Dose 50 mls @ as directed IV .STK-MED ONE Stop: 01/02/20 05:59 Last Admin: 01/02/20 10:02 Dose: Not Given Clindamycin Phosphate (Cleocin In D5w) Confirm Administered Dose 50 mls @ as directed .ROUTE .STK-MED ONE Stop: 01/02/20 06:01 Last Admin: 01/02/20 10:02 Dose: Not Given Sodium Chloride (Normal Saline) Confirm Administered Dose 20 mls @ as directed .ROUTE .STK-MED ONE Stop: 01/02/20 07:11 Acetaminophen 1,000 mg/ Premix 100 mls @ 400 mls/hr IV NOW ONE Stop: 01/02/20 20:38 Last Admin: 01/02/20 21:07 Dose: 400 mls/hr Acetaminophen (Ofirmev) Confirm Administered Dose 100 mls @ as directed .ROUTE .STK-MED ONE Stop: 01/02/20 21:00 Last Admin: 01/03/20 08:27 Dose: Not Given Morphine Sulfate (Duramorph Pf) Confirm Administered Dose 10 mg .ROUTE .STK-MED ONE Stop: 01/02/20 05:37 Naloxone HCl (Narcan) 0.1 mg IVPUSH ONETIME PRN PRN Reason: Respiratory Depression Stop: 01/03/20 06:57 Octyl Cyanoacrylate (Dermabond Advance) Confirm Administered Dose 2 applic .ROUTE .STK-MED ONE Stop: 01/02/20 06:10 Last Admin: 01/02/20 10:02 Dose: Not Given Ondansetron HCl (Zofran) Confirm Administered Dose 4 mg .ROUTE .STK-MED ONE Stop: 01/02/20 05:37 Ondansetron HCl (Zofran) 4 mg IVPUSH Q6H PRN PRN Reason: Nausea Oxycodone HCl (Oxycodone) 5 mg PO ONETIME ONE Stop: 01/02/20 20:25 Last Admin: 01/02/20 23:00 Dose: Not Given Oxycodone/Acetaminophen (Percocet 325-5 Mg) 2 tab PO Q6H PRN PRN Reason: Pain (moderate 4-6) Oxytocin (Pitocin) Confirm Administered Dose 20 unit .ROUTE .STK-MED ONE Stop: 01/02/20 05:37 - Exam General: Reports: Alert, Oriented, Cooperative, No Acute Distress Lungs: Reports: Normal Respiratory Effort Cardiovascular: Reports: Regular Rate, Regular Rhythm GI/Abdominal Exam: Soft, Non-Tender (Female) Exam: Deferred Rectal (Female) Exam: Deferred Back Exam: Reports: Normal Inspection, Full Range of Motion Extremities: Normal Inspection, Normal Range of Motion, Non-Tender, Normal Capillary Refill Skin: Reports: Warm, Dry, Intact Wound/Incisions: Reports: Dressing Dry and Intact Neurological: Reports: No New Focal Deficit, Normal Gait, Normal Speech, Normal Tone, Sensation Intact Psy/Mental Status: Reports: Alert, Normal Affect, Normal Mood
[2020-01-03 21:47] VITALS: BP 123/73; PULSE 110
== END 2020-01-03 23:33 | disposition home or self-care (01) | DRG 788 ==
LOC: MW.OB 04:34
PROVIDERS: ADMIT Obstetrics & Gynecology; ATTEND Obstetrics & Gynecology
PROC: 10D00Z1 Extraction of Products of Conception, Low, Open Approach (ICD-10-PCS; principal; 2020-01-02)
DX: O34.211 Maternal care for low transverse scar from previous cesarean delivery (principal); O99.52 Diseases of the respiratory system complicating childbirth; J45.909 Unspecified asthma, uncomplicated; O99.62 Diseases of the digestive system complicating childbirth; K21.9 Gastro-esophageal reflux disease without esophagitis; O99.214 Obesity complicating childbirth; E66.9 Obesity, unspecified; Z3A.39 39 weeks gestation of pregnancy; Z37.0 Single live birth; Z88.6 Allergy status to analgesic agent; Z88.1 Allergy status to other antibiotic agents; Z88.5 Allergy status to narcotic agent; Z79.899 Other long term (current) drug therapy
CPT/HCPCS: 36415; 51702; 59025; 85014; 85018; 85027; 86592; 86593; 86850; 86900; 86901; A9270-GY; J0131; J2270; J2300; J2405; J2590; J3010; J7120

== ENCOUNTER 2020-04-18 09:22 | Emergency (ER) | payer MEDICAID, SELFPAY ==
[2020-04-18] MEDS ORDERED: Dexamethasone 10 MG/ML SDV PO ONE (09:29)
[2020-04-18] MEDS ORDERED: Albuterol 0.5% 5 MG/ML Neb Soln 20 ML Bottle NEB ONE (09:34)
[2020-04-18] MEDS ORDERED: Albuterol 0.083% 2.5 MG/3 ML Neb Soln NEB ONE (09:39)
--- NOTE | 2020-04-18 09:39 | EDM.PDOC ---
ED HPI GENERAL MEDICAL PROBLEM - General Chief Complaint: Respiratory Problem Stated Complaint: SOB Time Seen by Provider: 04/18/20 09:31 - History of Present Illness INITIAL COMMENTS - FREE TEXT/NARRATIVE: History of present illness: Patient presents with increased shortness of breath over the past several days consistent with her prior asthma attacks. She states that she is had to use increased breathing treatments especially this morning but she felt like her throat was closing off after taking some Tylenol so she called 911. They gave her a DuoNeb treatment in route and now she is feeling somewhat better. She denies any fever chills no cough congestion or runny nose she has not had any leg pain or leg swelling no chest pain nothing seems to make it worse the patient states the nebulizers have helped make it better somewhat. She smokes occasional marijuana no tobacco. Review of systems: As per history of present illness and below otherwise all systems reviewed and negative. Past medical history: As per history of present illness and as reviewed below otherwise noncontributory. Surgical history: As per history of present illness and as reviewed below otherwise noncontributory. Social history: No reported history of drug or alcohol abuse. Family history: As per history of present illness and as reviewed below otherwise noncontributory. Physical exam: HEENT: Atraumatic, normocephalic, pupils reactive, negative for conjunctival pallor or scleral icterus, mucous membranes moist, throat clear, neck supple, nontender, trachea midline. Lungs: Patient is tachypneic with some scattered wheezing mild respiratory distress. Heart: S1S2, regular, negative for clicks, rubs, or JVD. Abdomen: Soft, nondistended, nontender. Negative for masses or hepatosplenomegaly. Negative for costovertebral tenderness. Pelvis: Stable nontender. Genitourinary: Deferred. Rectal: Deferred. Extremities: Atraumatic, negative for cords or calf pain. Neurovascular unremarkable. Neuro: Awake, alert, oriented. Cranial nerves II through XII unremarkable. Cerebellum unremarkable. Motor and sensory unremarkable throughout. Exam nonfocal. Diagnostics: [] Therapeutics: [] Impression: Asthma exacerbation. [] Plan: Patient will undergo an hour-long albuterol treatment Decadron orally and be reassessed. [] Definitive disposition and diagnosis as appropriate pending reevaluation and review of above. - Related Data Allergies Allergy/AdvReac Type Severity Reaction Status Date / Time aspirin Allergy Anaphylactic Verified 04/18/20 09:25 Shock azithromycin [From Zithromax] Allergy Anaphylactic Verified 04/18/20 09:25 Shock ibuprofen [From Motrin] Allergy Anaphylactic Verified 04/18/20 09:25 Shock ketorolac [From Toradol] Allergy Anaphylactic Verified 04/18/20 09:25 Shock montelukast [From Singulair] Allergy Anaphylactic Verified 04/18/20 09:25 Shock Penicillins Allergy Anaphylactic Verified 04/18/20 09:25 Shock Home Meds: Home Meds Loratadine [Claritin] 10 mg PO DAILY 07/31/18 [History] Albuterol [Ventolin HFA] 1 puff INH Q4H PRN #1 inh 09/03/19 [Rx] Budesonide/Formoterol Fumarate [Symbicort 160-4.5 Mcg Inhaler] 1 puff IH BID #1 hfa.aer.ad 09/03/19 [Rx] Calcium Carbonate [Tums] 1 tab.chew CHEW ASDIRECTED PRN 12/27/19 [History] Albuterol Sulfate 5 mg IH Q4HR #1 box 04/18/20 [Rx] Albuterol/Ipratropium [DuoNeb 3.0-0.5 MG/3 ML] 3 ml .XX Q6HR #1 box 04/18/20 [Rx] predniSONE 60 mg PO WITHBREAKFAST 5 Days #15 tab 04/18/20 [Rx] Past Medical History HEENT History: Reports: Allergic Rhinitis, Other (See Below) Other HEENT History: wears glasses, hyposmia Cardiovascular History: Reports: None Other Cardiovascular History: murmur with 2nd Respiratory History: Reports: Asthma Gastrointestinal History: Reports: Gastritis, GERD Other Gastrointestinal History: reflux relieved with baking soda and water, tums as needed Genitourinary History: Reports: None DISPATCHER ELECTRIC POWER History: Reports: Ectopic , Other DISPATCHER ELECTRIC POWER History: 5 months post Musculoskeletal History: Reports: None Neurological History: Reports: Other (See Below) Psychiatric History: Reports: None Endocrine/Metabolic History: Reports: Obesity/BMI 30+ Hematologic History: Reports: None Immunologic History: Reports: None Oncologic (Cancer) History: Reports: None Dermatologic History: Reports: Eczema Other Dermatologic History: left axilla hidrandenitis supurativa - Infectious Disease History Infectious Disease History: Reports: Chicken Pox - Past Surgical History Head Surgeries/Procedures: Reports: None Other HEENT Surgeries/Procedures: removal of nasal polyp, sinus surgery Female Surgical History: Reports: Section, Tubal Ligation, Other (See Below) Social & Family History - Family History Family Medical History: Noncontributory Cardiac: Reports: Cardiomyopathy, Heart Failure, Hypertension Respiratory: Reports: Asthma OBGYN: Reports: Neurological: Reports: Other (See Below) Other Neurological Family History: Epilepsy Endocrine/Metabolic: Reports: Diabetes, type II Oncologic: Reports: Breast, Colon, Lung - Caffeine Use Caffeine Use: Reports: None - Sexual History Sexual History: Reports: Single Partner - Living Situation & Occupation Living situation: Reports: ED ROS GENERAL - Review of Systems Review Of Systems: See Below ED EXAM, GENERAL - Physical Exam Exam: See Below Course - Vital Signs Text/Narrative:: 1045 the patient was reassessed and her breathing is much improved she feels much better she be discharged home with refills of albuterol for her nebulizer DuoNeb for nebulizer and a 5-day course of steroid. Last Recorded V/S: Last Vital Signs Temp 35.6 C L 04/18/20 09:23 Pulse 102 H 04/18/20 10:25 Resp 20 04/18/20 10:25 BP 108/75 04/18/20 10:25 Pulse Ox 90 L 04/18/20 10:25 - Orders/Labs/Meds Orders: Active Orders 24 hr Category Date Time Status RT Aerosol Therapy [RC] ASDIRECTED Care 04/18/20 09:40 Active Meds: Medications Discontinued Medications Generic Name Dose Route Start Last Admin Trade Name Minh PRN Reason Stop Dose Admin Albuterol 7.5 mg 04/18/20 09:39 04/18/20 09:45 Proventil Neb Soln NEB 04/18/20 09:40 5 mg ONETIME ONE Administration Albuterol Confirm 04/18/20 09:42 04/18/20 10:32 Proventil Neb Soln Administered 04/18/20 09:43 Not Given Dose 7.5 mg .ROUTE .STK-MED ONE Dexamethasone 8 mg 04/18/20 09:29 04/18/20 09:34 Dexamethasone PO 04/18/20 09:30 8 mg ONETIME ONE Administration Departure - Departure Time of Disposition: 10:45 Disposition: Home, Self-Care 01 Condition: Good Clinical Impression: Acute asthma - Discharge Information *PRESCRIPTION DRUG MONITORING PROGRAM REVIEWED*: Not Applicable *COPY OF PRESCRIPTION DRUG MONITORING REPORT IN PATIENT MELISSA: Not Applicable Prescriptions: Albuterol Sulfate 5 mg IH Q4HR #1 box Albuterol/Ipratropium [DuoNeb 3.0-0.5 MG/3 ML] 3 ml .XX Q6HR #1 box predniSONE 60 mg PO WITHBREAKFAST 5 Days #15 tab Instructions: Asthma Attack, Asthma, Adult Referrals: PCP,Unobtain [Primary Care Provider] - Forms: ED Department Discharge Additional Instructions: The following information is given to patients seen in the emergency department who are being discharged to home. This information is to outline your options for follow-up care. We provide all patients seen in our emergency department with a follow-up referral. The need for follow-up, as well as the timing and circumstances, are variable depending upon the specifics of your emergency department visit. If you don't have a primary care physician on staff, we will provide you with a referral. We always advise you to contact your personal physician following an emergency department visit to inform them of the circumstance of the visit and for follow-up with them and/or the need for any referrals to a consulting specialist. The emergency department will also refer you to a specialist when appropriate. This referral assures that you have the opportunity for follow-up care with a specialist. All of these measure are taken in an effort to provide you with optimal care, which includes your follow-up. Under all circumstances we always encourage you to contact your private physician who remains a resource for coordinating your care. When calling for follow-up care, please make the office aware that this follow-up is from your recent emergency room visit. If for any reason you are refused follow-up, please contact the [facility] Emergency Department at and asked to speak to the emergency department charge nurse. Gloria Paez [facility] [address] [place] [address] [id number] [address] [id number] Sepsis Event Note (ED) - Evaluation Sepsis Screening Result: No Definite Risk - Focused Exam Vital Signs: Vital Signs Temp Pulse Resp BP Pulse Ox 04/18/20 10:25 102 H 20 108/75 90 L 04/18/20 09:55 101 H 21 H 113/67 97 04/18/20 09:23 35.6 C L 118 H 24 H 126/69 96 - My Orders Last 24 Hours: My Active Orders 04/18/20 09:40 RT Aerosol Therapy [RC] ASDIRECTED - Assessment/Plan Last 24 Hours: My Active Orders 04/18/20 09:40 RT Aerosol Therapy [RC] ASDIRECTED
[2020-04-18] MEDS ORDERED: Albuterol 0.083% 2.5 MG/3 ML Neb Soln ONE (09:42)
[2020-04-18 11:10] VITALS: BP 127/51; PULSE 95
== END 2020-04-18 11:00 | disposition home or self-care (01) ==
LOC: MW.ED 09:22
DX: J45.901 Unspecified asthma with (acute) exacerbation (principal); E66.9 Obesity, unspecified; Z88.6 Allergy status to analgesic agent; Z88.1 Allergy status to other antibiotic agents; Z88.0 Allergy status to penicillin; Z88.8 Allergy status to other drugs, medicaments and biological substances; Z68.34 Body mass index [BMI] 34.0-34.9, adult
CPT/HCPCS: 94640; 99285; J1100